=== PATIENT | female | born 1945 | race Caucasian/White ===

== ENCOUNTER 2023-09-15 05:37 | Day surgery (SDC) | payer MEDICARE, SELFPAY ==
[2023-09-15] VITALS (10 sets, daily range): BP systolic 111–173; BP diastolic 66–98; PULSE 75–95; RESP 16–18; TEMP 36.1–36.9; O2SAT 95–100; BMI 26.2
--- NOTE | 2023-09-15 | COLBX_PTH ---
PATHOLOGY RESULTS PATIENT: CHARISSA MCCARTHY LOC: EN U#:[id number] AGE/SX: 78/F ROOM: RE09/15/[address]: Dr. Anish Knutson MD : 1945 BED: DIS: 09/15/2023 SPEC #: [id number] RECD: 09/15/23 11:23 STATUS: ESPERANZA REMike #: [id number] MALENA: 09/15/23 00:[address]: Anish Knutson DEPT: SURGICAL PATHOLOGY RECD BY: Erin Montejo ENTERED: 09/15/23 11:24 SP TYPE: COLON BX OTHR DR: Dr. Audelia Waldron MD Tissues: Transverse colon HEMORRHOIDS Procedures: Surgery Specimen Level III Surgery Specimen Level IV HEADER OPERATION: Multiple polyps, hemorrhoidectomy with colonoscopy with polypectomy PRE-OP DIAGNOSIS: Internal bleeding hemorrhoids TISSUE SUBMITTED: A - Mid transverse polyp, B - Prolapsed hemorrhoid tissue MICROSCOPIC DIAGNOSIS A. Mid transverse polyp, polypectomy: A fragment of colonic mucosa, no pathologic diagnosis. B. Prolapsed hemorrhoid tissue, excision: Pieces of anorectal mucosa with dilated and congested blood vessels consistent with hemorrhoid and with changes consistent with mucosal prolapsed syndrome. PANCHO:shannon 09/16/2023 MICROSCOPIC DESCRIPTION Slides are reviewed. GROSS DESCRIPTION A - Received in fixative is one container labeled with the patient's name and designated mid transverse polyp. The specimen consists of one irregular fragment of light carlisle soft tissue that measures 0.5 x 0.2 x 0.1 cm. The specimen is totally submitted in one cassette. B - Received in fixative is one container labeled with the patient's name and designated prolapsed hemorrhoid tissue. The specimen consists of a piece of carlisle mucosal tissue measuring 7.5 x 1.5 x 1.0 cm. A raised polyp is noted measuring 1.5 x 1.0 x 0.6 cm. Also present is a second piece of carlisle mucosal tissue measuring 2.5 x 1.0 x 0.5 cm. This piece is also inked and bisected. The entire specimen is submitted in seven cassettes as follows: 1-6 - larger piece (cassettes 1 & 2 contain the area with the polyp), 7 - smaller piece. / PANCHO:shannon 09/15/2023 TC:5 CPT: 83298, 84059
--- OUTSIDE RECORDS SUMMARY | 2023-09-15 05:42 | XMS RPT_ITS | CCD ---
Author Name Unknown Address [address] [place] [address] Organization [facility] Care Team Providers Care Freight Sorter Name Role Phone Renate Waldron MD Primary Care Provider Gentry Mendiola Unavailable TRISHA PEDERSON Attending Unavail able TALAMPAS, RENATE D Referring Unavailable TALAMPAS, RENATE D Primary Care Unavailable PHIL DICKERSON Attending UnavailTRISHA Penny Referring Unavail able TALAMPAS, RENATE D Primary Care Unavailable PHIL DICKERSON Attending Unavailabl e TALAMPAS, RENATE D Primary Care Unavailable PHIL DICKERSON Attending Unavailabl e TALAMPAS, RENATE D Primary Care Unavailable Renate Waldron MD Primary Care Provider Gentry Mendiola Unavailable HUMERAAMPAS, RENATE D Referring Unavailable TALAMPAS, RENATE D Primary Care Unavailable KAROLINA BRYANT Attending Unavailable TALAMPAS, RENATE D Primary Care Unavailable TALAMPAS, RENATE D Referring Unavailable TALAMPAS, RENATE D Primary Care Unavailable TALAMPAS, RENATE D Referring Unavailable TALAMPAS, RENATE D Primary Care Unavailable TALAMPAS, RENATE D Attending Unavailable TALAMPAS, RENATE D Primary Care Unavailable KAROLINA BRYANT Referring Unavailable TALAMPAS, RENATE D Primary Care Unavailable TALAMPAS, RENATE D Referring Unavailable TALAMPAS, RENATE D Primary Care Unavailable TALAMPAS, RENATE D Attending Unavailable PRISCILLA ROBB Referring Unavailable TALAMPAS, RENATE D Primary Care Unavailable TALAMPAS, RENATE D Referring Unavailable TALAMPAS, RENATE D Primary Care Unavailable RON CARNEY Referring Unavailable TALAMPAS, RENATE D Primary Care Unavailable TALAMPAS, RENATE D Primary Care Unavailable NANDO WALDRONA Gideon Primary Care Unavailable KAROLINA BRYANT Referring Unavailable NANDO WALDRONA Gideon Primary Care Unavailable KAROLINA BRYANT Referring Unavailable TRELL MARIE Attending Unavailable NANDO WALDRONA Gideon Primary Care Unavailable Allergies Allergy Classification Reported Allergen(s) Allergy Type Date of Onset Reaction(s) Facility (20 sources) Adhesive Tape; Translations: [ADHESIVE TAPE (ROSINS)] Allergy to substance 8 Other: See Comments [facility] (20 sources) Latex; Translations: [LATEX] Drug Allergy 8 Itching [facility] (20 sources) Bee Sting; Translations: [BEE STING] Allergy to substance 8 Swelling [facility] (5 sources) Influenza Virus Vaccines; Translations: [INFLUENZA VIRUS VACCINES] Drug Allergy 8 GI Upset [facility] (20 sources) Influenza Virus Vaccines Drug Allergy 8 GI Upset [facility] Medications Current Medications Medication Drug Class(es) Dates Sig (Normalized) Sig (Original) doxycycline monohydrate 100 mg oral tablet (2 sources) Tetracycline-clas s Drug Start: 09-14-2022 End: 09-19-2022 take 1 tablet by mouth twice daily doxycycline monohydrate 100 mg tablet Indications: Fever, unspecified fever cause , LRTI (lower respiratory tract infection) Take 1 tablet by mouth twice daily for 5 days. 10 tablet 0 09/14/2022 09/19/2022 Active Completed/Discontinued Medications Medication Drug Class(es) Dates Sig (Normalized) Sig (Original) albuterol 0.83 mg/ml inhalation solution (20 sources) beta2-Adrenergic Agonist Start: 09-14-2022 End: 09-14-2022 albuterol 2.5 mg /3 mL (0.083 %) 2.5 mg (PROVENTIL) Problems Active Problems Problem Classification Problem Date Documented Da te Episodic/Chronic Asthma (20 sources) Mild intermittent asthma; Translations: [Mild intermittent asthma, uncomplicated] Chronic Cancer of breast (20 sources) Malignant neoplasm of upper-inner quadrant of female breast; Translations: [Malignant neoplasm of upper-inner quadrant of unspecified female breast] 06-18-2005 Chronic Conditions associated with dizziness or vertigo (20 sources) Meniere's disease; Translations: [Meniere's disease, unspecified ear] Chronic Deficiency and other anemia (3 sources) Iron deficiency anemia; Translations: [Iron deficiency anemia, unspecified] Episodic Deficiency and other anemia (1 source) Other iron deficiency anemias; Translations: [Other iron deficiency anemia] Onset: 3 Episodic Esophageal disorders (20 sources) Gastroesophageal reflux disease; Translations: [Gastro-esophageal reflux disease without esophagitis] Onset: 8 06-18-2005 Chronic Fever of unknown origin (1 source) Fever; Translations: [Fever, unspecified] Episodic Heart valve disorders (8 sources) Aortic stenosis, non-rheumatic ; Translations: [Nonrheumatic aortic (valve) stenosis] Onset: 3 06-20-2023 Chronic Heart valve disorders (1 source) Cardiac murmur, unspecified; Translations: [Heart murmur] Onset: 3 Episodic Hemorrhoids (9 sources) Prolapsed hemorrhoids; Translations: [Other hemorrhoids] Onset: 2 Episodic Immunizations and screening for infectious disease (10 sources) Patient encounter status; Translations: [Encounter for immunization] Episodic Malaise and fatigue (2 sources) Fatigue; Translations: [Chronic fatigue, unspecified] Onset: 3 Chronic Malaise and fatigue (1 source) Weakness; Translations: [Weakness] Onset: 3 Episodic Miscellaneous mental health disorders (20 sources) Lack or loss of sexual desire; 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] Onset: 2 07-25-2012 Chronic Nutritional deficiencies (20 sources) Vitamin D deficiency; Translations: [Vitamin D deficiency, unspecified] Onset: 1 03-30-2011 Chronic Osteoporosis (20 sources) Osteoporosis; Translations: [Age-related osteoporosis without current pathological fracture] Onset: 5 06-18-2005 Chronic Other aftercare (1 source) Other [place] [facility] (current[facility] drug therapy; Translations: [Encounter for long-term current use of medication] Onset: 3 Episodic Other congenital anomalies (20 sources) Congenital anomaly of skin; Translations: [Other specified congenital malformations of skin] Onset: 6 09-02-2006 Chronic Other connective tissue disease (1 source) Cramp in lower limb; Translations: [Cramp and spasm] 05-23-2023 Episodic Other connective tissue disease (1 source) Cramp and spasm; Translations: [Leg cramp] Onset: 3 Episodic Other gastrointestinal disorders (2 sources) Heartburn; Translations: [Heartburn] Episodic Other infections; including parasitic (1 source) Personal history of other infectious and parasitic diseases; Translations: [History of hepatitis B] Onset: 3 Episodic Other inflammatory condition of skin (1 source) Pruritus ani; Translations: [Pruritus ani] Episodic Other lower respiratory disease (1 source) Lower respiratory tract infection; Translations: [Unspecified acute lower respiratory infection] Episodic Other nervous system disorders (20 sources) Plantar nerve lesion; Translations: [Lesion of plantar nerve, unspecified lower limb] Onset: 8 12-28-2007 Chronic Other screening for suspected conditions (not mental disorders or infectious disease) (5 sources) Inconclusive mammography finding; Translations: [Inconclusive mammogram] Onset: 3 05-23-2023 Episodic Other upper respiratory disease (20 sources) Allergic rhinitis; Translations: [Allergic rhinitis, unspecified] 06-18-2005 Chronic Other upper respiratory disease (1 source) Nasal discharge; Translations: [Other specified disorders of nose and nasal sinuses] Episodic Other upper respiratory infections (1 source) Acute frontal sinusitis; Translations: [Acute frontal sinusitis, unspecified] Episodic Prolapse of female genital organs (20 sources) Cystocele; Translations: [Cystocele, unspecified] Onset: 4 11-28-2013 Chronic Residual codes; unclassified (2 sources) Past history of procedure; Translations: [Personal history of other medical treatment] 08-10-2023 Episodic Residual codes; unclassified (1 source) Non-smoker; Translations: [Other specified health status] 08-10-2023 Episodic Residual codes; unclassified (2 sources) Personal history of other medical treatment; Translations: [History of cardiovascular stress test] Onset: 3 Episodic Residual codes; unclassified (1 source) Other specified health status; Translations: [Non-smoker] Onset: 3 Episodic Spondylosis; intervertebral disc disorders; other back problems (20 sources) Degeneration of intervertebral disc; Translations: [Degeneration of intervertebral disc, site unspecified] 06-18-2005 Chronic Unclassified (1 source) Dense breasts; Translations: [Dense breasts] Onset: Viral infection (2 sources) Disease caused by 2019-nCoV; Translations: [COVID-19] Episodic Past or Other Problems Problem Classification Problem Date Documented Da te Episodic/Chronic Abdominal hernia (1 source) Diaphragmatic hernia without obstruction or gangrene; Translations: [Hiatal hernia] Onset: 04-28-2022 Episodic Acquired foot deformities (20 sources) Bunion; Translations: [Bunion of unspecified foot] Onset: 12-14-2007 12-14-2007 Episodic Biliary tract disease (20 sources) Calculus of gallbladder with cholecystitis; Translations: [Calculus of gallbladder with chronic cholecystitis without obstruction] Onset: 10-23-2008 10-23-2008 Episodic Deficiency and other anemia (1 source) Iron deficiency anemia, unspecified; Translations: [Iron deficiency anemia, unspecified iron deficiency anemia type] Onset: 10-15-2022 Episodic Other connective tissue disease (20 sources) Pain in limb; Translations: [Pain in unspecified limb] Onset: 12-28-2007 12-28-2007 Episodic Other female genital disorders (20 sources) Leukoplakia of vulva; Translations: [Circumscribed scleroderma] Onset: 08-31-2011 08-31-2011 Episodic Other gastrointestinal disorders (1 source) Full incontinence of feces; Translations: [Full incontinence of feces] Onset: 04-28-2022 Episodic Other inflammatory condition of skin (1 source) Pruritus ani; Translations: [Perianal irritation] Onset: 06-18-2022 Episodic Spondylosis; intervertebral disc disorders; other back problems (20 sources) Chronic low back pain; Translations: [Lumbago with sciatica, unspecified side] Onset: 06-15-2016 06-15-2016 Episodic Results Test Name Value Interpretation Reference Range Facil ity Vital Signs Date Time Vital Sign Value Performing Clinician Teresa daniels 08-10-2023 15:22-0500 Body height 156.2 cm [employer] Work Phone: [facility] 08-10-2023 15:22-0500 Body weight 63.5 kg Trell [employer] Work Phone: [facility] 08-10-2023 15:22-0500 Diastolic blood pressure 90 mm[Hg] Trell Gross DO Work Phone: [facility] 08-10-2023 15:22-0500 Heart rate 87 /min Trell Gross DO Work Phone: [facility] 08-10-2023 15:22-0500 Systolic blood pressure 142 mm[Hg] Trell Gross DO Work Phone: [facility] 08-03-2023 11:01-0500 Body temperature 99 [degF] Cliff Macariolemiguelangel MEMBER OF TECHNICAL STAFF.ENROLLED NURSE Work Phone: [facility] 08-03-2023 11:01-0500 Body weight 64.95 kg Cliff Vaughn MEMBER OF TECHNICAL STAFF.ENROLLED NURSE Work Phone: [facility] 08-03-2023 11:01-0500 Diastolic blood pressure 76 mm[Hg] Cliff Vaughn MEMBER OF TECHNICAL STAFF.ENROLLED NURSE Work Phone: [facility] 08-03-2023 11:01-0500 Heart rate 93 /min Cliff Vaughn MEMBER OF TECHNICAL STAFF.ENROLLED NURSE Work Phone: [facility] 08-03-2023 11:01-0500 Respiratory rate 21 /min Cliff Vaughn MEMBER OF TECHNICAL STAFF.ENROLLED NURSE Work Phone: [facility] 08-03-2023 11:01-0500 SaO2% (BldA) [Mass fraction] 99 % Cliff Vaughn MEMBER OF TECHNICAL STAFF.ENROLLED NURSE Work Phone: [facility] 08-03-2023 11:01-0500 Systolic blood pressure 122 mm[Hg] Cliff Vaughn MEMBER OF TECHNICAL STAFF.ENROLLED NURSE Work Phone: [facility] 05-23-2023 17:28-0400 Diastolic blood pressure 72 mm[Hg] Renate Waldron MD Work Phone: [facility] 05-23-2023 17:28-0400 Systolic blood pressure 128 mm[Hg] Renate Waldron MD Work Phone: [facility] 05-23-2023 16:27-0400 Body temperature 99 [degF] Renate Waldron MD Work Phone: [facility] 05-23-2023 16:27-0400 Body weight 63.96 kg Renate Waldron MD Work Phone: [facility] 05-23-2023 16:27-0400 Heart rate 84 /min Renate Waldron MD Work Phone: [facility] 05-23-2023 16:27-0400 Respiratory rate 18 /min Renate Waldron MD Work Phone: [facility] 05-23-2023 16:27-0400 SaO2% (BldA) [Mass fraction] 98 % Reante Waldron MD Work Phone: [facility] 12-20-2022 07:55-0400 Body height 154.9 cm Phil Dickerson MD Work Phone: [facility] 12-20-2022 07:55-0400 Body weight 63.96 kg Phil Dickerson MD Work Phone: [facility] 12-20-2022 07:55-0400 Diastolic blood pressure 84 mm[Hg] Phil Dickerson MD Work Phone: [facility] 12-20-2022 07:55-0400 Heart rate 87 /min Phil Dickerson MD Work Phone: [facility] 12-20-2022 07:55-0400 Systolic blood pressure 156 mm[Hg] Phil Dickerson MD Work Phone: [facility] 10-27-2022 15:28-0500 Body temperature 97.5 [degF] Renate Waldron MD Work Phone: [facility] 10-27-2022 15:28-0500 Body weight 61.69 kg Renate Waldron MD Work Phone: [facility] 10-27-2022 15:28-0500 Diastolic blood pressure 64 mm[Hg] Renate Waldron MD Work Phone: [facility] 10-27-2022 15:28-0500 Heart rate 102 /min Renate Waldron MD Work Phone: [facility] 10-27-2022 15:28-0500 Respiratory rate 18 /min Renate Waldron MD Work Phone: [facility] 10-27-2022 15:28-0500 SaO2% (BldA) [Mass fraction] 98 % Renate Waldron MD Work Phone: [facility] 10-27-2022 15:28-0500 Systolic blood pressure 128 mm[Hg] Renate Waldron MD Work Phone: [facility] 09-14-2022 17:29-0500 Body temperature 100.09 [degF] Ron Denbow PA-C Work Phone: [facility] 09-14-2022 17:29-0500 Body weight 60.42 kg Ron Denbow PA-C Work Phone: [facility] 09-14-2022 17:29-0500 Diastolic blood pressure 70 mm[Hg] Ron Denbow PA-C Work Phone: [facility] 09-14-2022 17:29-0500 Heart rate 88 /min Ron Denbow PA-C Work Phone: [facility] 09-14-2022 17:29-0500 Respiratory rate 18 /min Ron Denbow PA-C Work Phone: [facility] 09-14-2022 17:29-0500 SaO2% (BldA) [Mass fraction] 94 % Ron Denbow PA-C Work Phone: [facility] 09-14-2022 17:29-0500 Systolic blood pressure 122 mm[Hg] Ron Denbow PA-C Work Phone: [facility] 07-07-2022 10:46-0400 Body height 154.9 cm Phil Dickerson MD Work Phone: [facility] 07-07-2022 10:46-0400 Body weight 62.6 kg Phil Dickerson MD Work Phone: [facility] 07-07-2022 10:46-0400 Diastolic blood pressure 76 mm[Hg] Phil Dickerson MD Work Phone: [facility] 07-07-2022 10:46-0400 Heart rate 92 /min Phil Dickerson MD Work Phone: [facility] 07-07-2022 10:46-0400 Systolic blood pressure 148 mm[Hg] Phil Dickerson MD Work Phone: [facility] 06-18-2022 10:38-0400 Body height 154.9 cm Phil Dickerson MD Work Phone: [facility] 06-18-2022 10:38-0400 Body weight 62.14 kg Phil Dickerson MD Work Phone: [facility] 06-18-2022 10:38-0400 Diastolic blood pressure 64 mm[Hg] Phil Dickerson MD Work Phone: [facility] 06-18-2022 10:38-0400 Heart rate 79 /min Phil Dickerson MD Work Phone: [facility] 06-18-2022 10:38-0400 Systolic blood pressure 132 mm[Hg] Phil Dickerson MD Work Phone: [facility] 03-18-2022 11:40-0400 Body weight 60.78 kg Priscilla Robb MEMBER OF TECHNICAL STAFF.CN S Work Phone: [facility] 03-18-2022 11:40-0400 Diastolic blood pressure 70 mm[Hg] Priscilla Robb MEMBER OF TECHNICAL STAFF.FILLER SHREDDER MACHINE Work Phone: [facility] 03-18-2022 11:40-0400 Heart rate 68 /min Priscilla Robb MEMBER OF TECHNICAL STAFF.CN S Work Phone: [facility] 03-18-2022 11:40-0400 Respiratory rate 16 /min Priscilla Robb MEMBER OF TECHNICAL STAFF.CN S Work Phone: [facility] 03-18-2022 11:40-0400 SaO2% (BldA) [Mass fraction] 100 % Priscilla Robb MEMBER OF TECHNICAL STAFF.FILLER SHREDDER MACHINE Work Phone: [facility] 03-18-2022 11:40-0400 Systolic blood pressure 130 mm[Hg] Priscilla Robb MEMBER OF TECHNICAL STAFF.FILLER SHREDDER MACHINE Work Phone: [facility] Encounters Encounter Date Encounter Type Care Provider Facility Start: 08-10-2023 End: 08-10-2023 ambulatory KAROLINA BRYANT Facility:[id number] Start: 08-10-2023 End: 08-10-2023 Patient encounter procedure Trell Marie DO Work Phone: [facility] Procedures Date Procedure Procedure Detail Performing Clinician Start: 08-10-2023 Ecg routine ecg w/le ast 12 lds i&r only Trell Plascencia Frank DO Work Phone: Start: 06-13-2023 Screening digital br [place] tomos[employer] bi Renate aWldron MD Work Phone: Start: 09-14-2022 Radiologic exam ches t 2 views Ron Carney PA-C Work Phone: Start: 09-14-2022 COVID WITH FLUA+B, ROUTINE Ron Carney PA-C Work Phone: Start: 05-24-2022 BOBBI SCREENING W MADI Te nanci Robb MEMBER OF TECHNICAL STAFF.FILLER SHREDDER MACHINE Work Phone: Start: 03-18-2022 Adult depression scr eening assessment Priscilla Robb MEMBER OF TECHNICAL STAFF.FILLER SHREDDER MACHINE Work Phone: Start: 02-27-2021 Adult depression scr eening assessment Renate Waldron MD Work Phone: Start: 08-02-2018 Antibody screen Plan of Treatment Date Care Activity Detail Author Start: 06-14-2026 Diabetes Screening Diabetes Screenin [facility] Start: 04-13-2026 DIABETES SCREEN DIABETES SCREEN [facility] Start: 04-13-2026 Diabetes Screening Diabetes Screenin [facility] Start: 10-15-2025 DIABETES SCREEN DIABETES SCREEN [facility] Start: 09-21-2024 DIABETES SCREEN DIABETES SCREEN [facility] Start: 06-14-2024 Annual PCP Team Magazine Keeper anthony Disease Visit Annual PCP Team Chronic Disease Visit [facility] Start: 05-23-2024 Annual PCP Team Magazine Keeper anthony Disease Visit Annual PCP Team Chronic Disease Visit [facility] Start: 11-21-2023 Pneumococcal Vaccine : 65+ (2 - PPSV23 or PCV20) Pneumococcal Vaccine: 65+ (2 - PPSV23 or PCV20) [facility] Immunizations Immunization Date Immunization Notes Care Provider Yaw leslie 11-09-2017 pneumococcal conjuga te vaccine, 13 valent Renate Waldron MD Work Phone: [facility] 07-25-2006 influenza virus vaccine, unspecified formulation Renate Waldron MD Work Phone: [facility] Work Phone: NEGATED: Highlighted row has not occurred!03-18-2022 pneumococcal (PCV20) vaccine, 20 valent (PREVNAR 20) Priscilla Robb APRN.[employer] [facility] Work Phone: [facility] Work Phone: Payers Date Payer Category Payer Medicare [employer]NA MEDICARE HU[employer] MEDICARE PPO [id number] 2021-Present [phone] [place] [address] PPO [id number] 2018 Medicare [id number] 2018 Medicare [id number] Social History Date Type Detail Facility Start: 07-21-2011 Tobacco smoking stat us [facility] Never smoked tobacco [facility] Start: 09-15-2021 End: 08-10-2023 Alcohol intake Current non-drinker of alcohol (finding) [facility] Start: 1945 Sex Assigned At Not on file [facility] Start: 03-08-2022 End: 07-07-2022 Exposure to SARS-CoV-2 (event) Not sure [facility] Work Phone: Start: 07-21-2011 Tobacco use and exposure Smokeless tobacco non-user [facility] Work Phone: Start: 12-20-2022 End: 05-23-2023 History of Social function [facility] Work Phone: Start: 12-20-2022 End: 05-23-2023 Tobacco use panel [facility] Work Phone: Adult Depression Screening Assessment 0 [facility] Work Phone: Medical Equipment Procedure Code Equipment Code Equipment Origin al Text Equipment Identifier Dates Mesh Bio-A Synth etic 10x7cm Surgical Reinforcement Hernia Repair - [id number] Start: 08-10-2018 Clinical Notes 07-05-2018 to 08-10-2023 Trell Marie DO - 08/10/2023 3:07 PM ESTTelephone Encounter - Paris Hillman LPN - 08/03/2023 7:49 PM ESTTelephone Encounter - Syed Antonio APRN.ENROLLED NURSE - 08/03/2023 7:45 PM EST Note Date & Type Note Facility 08-10-2023 Note HNO ID: [id number] Author: Trell Marie DO Service: ? Author Type: Physician Type: Progress Notes Filed: 08/14/2023 5:02 AM Note Text: Referring Provider: Karolina Bryant APRN.ENROLLED NURSE Date: August 10, 2023 Chief Complaint: CARD New Patient Consult (Aortic valve stenosis. ) HISTORY OF PRESENT ILLNESS: Carmela March is a 78 year old female who presents for CARD New Patient Consult (Aortic valve stenosis. ). ALLERGIES Allergen Reactions Adhesive Tape (Shanon* Other: See Comments Bee Sting Swelling Influenza Virus Vac* GI Upset Latex Itching PAST MEDICAL HISTORY: PAST MEDICAL HISTORY Diagnosis Date Allergic rhinitis, cause unspecified Allergic rhinitis Chronic hepatitis, unspecified (HCC) Noted that negative for chronic active Hep B or C. Fatty liver noted on US Degeneration of intervertebral disc, site unspecified Esophageal reflux GERD (gastroesophageal reflux disease) Hiatal hernia History of cardiovascular stress test 07/07/2017 EF 81% no evidence of iscemia or infarct. History of echocardiogram 06/16/2023 EF is 61% Grade I left ventricular diastolic dysfunction. Moderate with ALEJA at 1.13 cm?. Mild aortic valve insufficiency and AR. Mild TR and MR. 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 Pederson DILATION AND CURETTAGE DXAND/THER NONOBSTETRIC Dilation AND curettage EGD TRANSORAL BIOPSY SINGLE/MULTIPLE 04/08/2017 H. pylori + ESOPHAGEAL MOTILITY STUDY W/INTERPANDRPT 04/08/2017 LAPS RPR PARAESPHGL HRNA INCL FUNDPLSTY W/MESH 08/10/2018 Dr. Pederson LAPS SURG CHOLECYSTECTOMY W/CHOLANGIOGRAPHY 11/07/2008 NEUROPLASTY AND/TRANSPOS MEDIAN NRV CARPAL TUNNE Carpal tunnel decomp, Bilateral PAST SURGICAL HISTORY OF 1998 Lumpectomy Right breast w/node biopsy PAST SURGICAL HISTORY OF all teeth extracted due to abcesses REMV CATARACT EXTRACAP,INSERT LENS Left 2021 FAMILY HISTORY Problem Relation Age of Onset Heart Father , [place] Diabetes Mother Heart Mother Diabetes Maternal Grandmother Heart Maternal Aunt Breast Cancer Other great aunt x 3 Colon Cancer Other aunt SOCIAL HISTORY: Tobacco Use: Never Alcohol Use: No Drug Use: No Employer And Job Title: No employer specified (Retired, disability) Years Of Education Completed: 11 years Marital Status: to [place] with 2 children MEDICATIONS: Current Outpatient Medications Medication Sig clobetasol (TEMOVATE) 0.05 % ointment Apply 1 application to affected area. Apply small amount to area nightly for 6 weeks then once weekly for maintenance ferrous sulfate 325 mg (65 mg iron) tablet Take 1 tablet by mouth every Tuesday,Tuesday,Tuesday. EVERY OTHER DAY esomeprazole (NEXIUM) 20 mg capsule TAKE 1 CAPSULE BY MOUTH DAILY 30 MINUTES BEFORE BREAKFAST meclizine (ANTIVERT) 12.5 mg tab Take 1 tablet by mouth three times daily as needed (dizziness). famotidine (PEPCID) 20 mg tablet Take 1 tablet by mouth twice daily. As directed albuterol HFA (VENTOLIN HFA) 90 mcg/actuation inhaler Inhale 2 Puffs as instructed every 4 hours as needed for wheezing/shortness of breath. MEDICATION, NON-DATABASE Turmeric GINKGO BILOBA ORAL Take by mouth. fluticasone (FLONASE) 50 mcg/actuation nasal spray Use 2 Sprays in each nostril once daily. Rinse mouth after use. BACILLUS COAGULANS (PROBIOTIC, B. COAGULANS, ORAL) Take 1 capsule by mouth once daily. Cholecalciferol, Vitamin D3, 5,000 unit cap Take 1 capsule by mouth once daily. THERAPEUTIC MULTIVITAMIN TAB Take one(1) tablet daily. CALCIUM 600 600 MG TAB Take one(1) tablet two(2) times daily. No current facility-administered medications for this visit. I have personally reviewed the patients past medical history including social, family, surgical, diagnostics, and medications. REVIEW OF SYSTEMS: Review of Systems Constitutional: Negative for chills and fatigue. Respiratory: Negative for chest tightness and shortness of breath. Cardiovascular: Negative for chest pain, palpitations and leg swelling. Neurological: Negative for dizziness, syncope, weakness and light-headedness. Hematological: Does not bruise/bleed easily. Psychiatric/Behavioral: Negative for confusion and hallucinations. Vitals: BP 142/90 (BP Site: Left Arm, BP Position: Sitting) Pulse 87 Ht 156.2 cm (5' 1.5 ) Wt 63.5 kg (140 lb) BMI 26.02 kg/m? PHYSICAL EXAMINATION: BP 142/90 (BP Site: Left Arm, BP Position: Sitting) Pulse 87 Ht 156.2 cm (5' 1.5 ) Wt 63.5 kg (140 lb) BMI 26.02 kg/m? Last 3 Encounter BP Readings: Date: BP: (more content not included)... [facility] 08-10-2023 History of Present illness Narrative Images from the original note were not included. Referring Provider: Karolina Bryant APRN.CNP Date: August 10, 2023 Chief Complaint: CARD New Patient Consult (Aortic valve stenosis. ) HISTORY OF PRESENT ILLNESS: Carmela March is a 78 year old female who presents for CARD New Patient Consult (Aortic valve stenosis. ). ALLERGIES Allergen Reactions Adhesive Tape (Shanon* Other: See Comments Bee Sting Swelling Influenza Virus Vac* GI Upset Latex Itching PAST MEDICAL HISTORY: PAST MEDICAL HISTORY Diagnosis Date Allergic rhinitis, cause unspecified Allergic rhinitis Chronic hepatitis, unspecified (HCC) Noted that negative for chronic active Hep B or C. Fatty liver noted on US Degeneration of intervertebral disc, site unspecified Esophageal reflux GERD (gastroesophageal reflux disease) Hiatal hernia History of cardiovascular stress test 07/07/2017 EF 81% no evidence of iscemia or infarct. History of echocardiogram 06/16/2023 EF is 61% Grade I left ventricular diastolic dysfunction. Moderate with ALEJA at 1.13 cm . Mild aortic valve insufficiency and AR. Mild TR and MR. 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 Pederson DILATION & CURETTAGE DX&/THER NONOBSTETRIC Dilation & curettage EGD TRANSORAL BIOPSY SINGLE/MULTIPLE 04/08/2017 H. pylori + ESOPHAGEAL MOTILITY STUDY W/INTERP&RPT 04/08/2017 LAPS RPR PARAESPHGL HRNA INCL FUNDPLSTY W/MESH 08/10/2018 Dr. Dacia JAIN SURG CHOLECYSTECTOMY W/CHOLANGIOGRAPHY 11/07/2008 NEUROPLASTY &/TRANSPOS MEDIAN NRV CARPAL TUNNE Carpal tunnel decomp, Bilateral PAST SURGICAL HISTORY OF 1998 Lumpectomy Right breast w/node biopsy PAST SURGICAL HISTORY OF all teeth extracted due to abcesses REMV CATARACT EXTRACAP,INSERT LENS Left 2021 FAMILY HISTORY Problem Relation Age of Onset Heart Father , [place] Diabetes Mother Heart Mother Diabetes Maternal Grandmother Heart Maternal Aunt Breast Cancer Other great aunt x 3 Colon Cancer Other aunt SOCIAL HISTORY: Tobacco Use: Never Alcohol Use: No Drug Use: No Employer And Job Title: No employer specified (Retired, disability) Years Of Education Completed: 11 years Marital Status: to Basil with 2 children MEDICATIONS: Current Outpatient Medications Medication Sig clobetasol (TEMOVATE) 0.05 % ointment Apply 1 application to affected area. Apply small amount to area nightly for 6 weeks then once weekly for maintenance ferrous sulfate 325 mg (65 mg iron) tablet Take 1 tablet by mouth every Tuesday,Tuesday,Tuesday. EVERY OTHER DAY esomeprazole (NEXIUM) 20 mg capsule TAKE 1 CAPSULE BY MOUTH DAILY 30 MINUTES BEFORE BREAKFAST meclizine (ANTIVERT) 12.5 mg tab Take 1 tablet by mouth three times daily as needed (dizziness). famotidine (PEPCID) 20 mg tablet Take 1 tablet by mouth twice daily. As directed albuterol HFA (VENTOLIN HFA) 90 mcg/actuation inhaler Inhale 2 Puffs as instructed every 4 hours as needed for wheezing/shortness of breath. MEDICATION, NON-DATABASE Turmeric GINKGO BILOBA ORAL Take by mouth. fluticasone (FLONASE) 50 mcg/actuation nasal spray Use 2 Sprays in each nostril once daily. Rinse mouth after use. BACILLUS COAGULANS (PROBIOTIC, B. COAGULANS, ORAL) Take 1 capsule by mouth once daily. Cholecalciferol, Vitamin D3, 5,000 unit cap Take 1 capsule by mouth once daily. THERAPEUTIC MULTIVITAMIN TAB Take one(1) tablet daily. CALCIUM 600 600 MG TAB Take one(1) tablet two(2) times daily. No current facility-administered medications for this visit. I have personally reviewed the patients past medical history including social, family, surgical, diagnostics, and medications. REVIEW OF SYSTEMS: Review of Systems Constitutional: Negative for chills and fatigue. Respiratory: Negative for chest tightness and shortness of breath. Cardiovascular: Negative for chest pain, palpitations and leg swelling. Neurological: Negative for dizziness, syncope, weakness and light-headedness. Hematological: Does not bruise/bleed easily. Psychiatric/Behavioral: Negative for confusion and hallucinations. Vitals: BP 142/90 (BP Site: Left Arm, BP Position: Sitting) Pulse 87 Ht 156.2 cm (5' 1.5 ) Wt 63.5 kg (140 lb) BMI 26.02 kg/m PHYSICAL EXAMINATION: BP 142/90 (BP Site: Left Arm, BP Position: Sitting) Pulse 87 Ht 156.2 cm (5' 1.5 ) Wt 63.5 kg (140 lb) BMI 26.02 kg/m Last 3 Encounter BP Readings: Date: BP: 08/03/2023 122/76 06/14/2023 130/80 05/23/2023 128/72 Last 3 Encounter Pulse Readings: Date: Pulse: 08/03/2023 93 06/14/2023 78 05/23/2023 84 Last 3 Encounter Wt Readings: Date: Wt: 08/03/2023 65 kg (143 lb 3.2 oz) 06/14/2023 63.5 kg (140 lb) 05/23/2023 64 kg (141 lb) Physical Exam Vitals reviewed. Constitutional: General: She is not in acute distress. Cardiovascular: Rate and Rhythm: Normal rate and regular rhythm. Pulses: Carotid pulses are 2+ on the right side and 2+ on the left side. Radial pulses are 2+ on the right side and 2+ on the left side. Femoral pulses are 2+ on the right side and 2+ on the left side. Popliteal pulses are 2+ on the right side and 2+ on the left side. Dorsalis pedis pulses are 2+ on the right side and 2+ on the left side. Posterior tibial pulses are 2+ on the right side and 2+ on the left side. Heart sounds: Murmur heard. Systolic murmur is present with a grade of 2/6. Comments: PMI not displaced. 2nd heart sound loud. Pulmonary: Effort: Pulmonary effort is normal. Breath sounds: Normal breath sounds. Abdominal: General: Abdomen is flat. Bowel sounds are normal. Palpations: Abdomen is soft. Tenderness: There is no abdominal tenderness. Musculoskeletal: Right lower leg: No edema. Left lower leg: No edema. Skin: General: Skin is warm. Findings: No rash or wound. Neurological: Mental Status: She is alert and oriented to person, place, and time. Coordination: Coordination is intact. LABS: Glucose (mg/dL) Date Value 06/14/2023 91 09/21/2021 88 Potassium (mmol/L) Date Value 06/14/2023 4.3 09/21/2021 4.3 Sodium (mmol/L) Date Value 06/14/2023 141 09/21/2021 141 Chloride (mmol/L) Date Value 06/14/2023 104 09/21/2021 103 CO2 (mmol/L) Date Value 06/14/2023 23 09/21/2021 25 Creatinine (mg/dL) Date Value 06/14/2023 0.84 09/21/2021 0.87 BUN (mg/dL) Date Value 06/14/2023 16 09/21/2021 18 Anion Gap (mmol/L) Date Value 06/14/2023 14 09/21/2021 13 Calcium (mg/dL) Date Value 09/21/2021 9.9 Calcium, Total (mg/dL) Date Value 06/14/2023 9.9 Protein, Total (g/dL) Date Value 06/14/2023 7.7 09/21/2021 7.5 Albumin (g/dL) Date Value 06/14/2023 4.3 09/21/2021 4.4 Bilirubin, Total (mg/dL) Date Value 06/14/2023 0.2 09/21/2021 0.3 Alkaline Phosphatase (U/L) Date Value 06/14/2023 66 09/21/2021 63 AST (U/L) Date Value 06/14/2023 30 09/21/2021 28 ALT (U/L) Date Value 06/14/2023 17 09/21/2021 15 Hemoglobin (g/dL) Date Value 06/14/2023 11.9 09/21/2021 11.3 Hematocrit (%) Date Value 06/14/2023 38.3 09/21/2021 37.0 WBC (k/uL) Date Value 06/14/2023 7.40 09/21/2021 7.41 Cholesterol, Total (mg/dL) Date Value 10/15/2022 179 02/20/2020 181 HDL Cholesterol (mg/dL) Date Value 10/15/2022 63 02/20/2020 55 LDL Cholesterol (mg/dL) Date Value 10/15/2022 104 02/20/2020 109 Triglyceride (mg/dL) Date Value 10/15/2022 61 02/20/2020 87 EKG: ASSESSMENT/PLAN: 1. Aortic valve stenosis, etiology of cardiac valve disease unspecified - ICD9: 424.1, ICD10: I35.0 (primary diagnosis) on physical examination aortic valve sounds like 1.2. Second heart sound is decreased there is a heave Hematology she did not have shortness of breath did not have syncope near syncope. We discussed in pictorial format aortic stenosis. I do not think it is time for a surgical approach. Will go ahead and follow-up the patient in 6 to 9 months. Look for signs and symptoms shortness of breath and syncope 2. History of cardiovascular stress test - ICD9: V15.89, ICD10: Z92.89 Stress test done on 07/07/2017 showed EF 81% no evidence of iscemia or infarct. 3. History of echocardiogram - ICD9: V15.89, ICD10: Z92.89 Echo done on 06/16/2023 showed EF is 61% Grade I left ventricular diastolic dysfunction. Moderate with ALEJA at 1.13 cm . Mild aortic valve insufficiency and AR. Mild TR and MR. 4. Non-smoker - ICD9: V49.89, ICD10: Z78.9 Patient is a non-smoker , ICD10: I35.2 5. Preoperative patient here today for preoperative evaluation. There is no history of prior myocardial infarction last 6 months no evidence of recent onset of congestive heart failure.cEvaluation that determines a poor outlook is severe aortic stenosis and rales. We will clear the patient for surgery after examination reviewed today's diagnostic testing Surgical clearance for hemorrhoid I, Bettie Munoz MA , scribing for Dr. Trell Marie, was present in the room during the examination Follow up in:1 year with Thelma Prior to entering the room, I reviewed the last progress note including the diagnosis and plan of action. When available, I then reviewed the last heart catheterization, stress test, echocardiogram and EKG. I proceeded to review the medial therapy and any side effects the patient may have had in the past. I was able to look at the last several EKGs. A new EKG was performed today and an interetation was performed. I reviewed its interpretation with the family and compared it to the previous EKGs that we have in the medical records. Changes were described to the patient. In a pictorial format; I described the AL and QRS intervals. This was to show the effects of antiarrhythmic therapy on the electrical system. I was able to look at the past several EKG's. A new EKG was performed today and interpretation was noted. I reviewed this interpretation with the patient, and the family when available, and compared it to the previous EKG's that we have in the medical record. Since my office visit was carried out with a scribe, while in the exam room I was able to devote one hundred percent of my time in [id number] conversation with the patient. I answered all the questions and explained the diagnosis of mild aortic stenosis. Greater that 51% of my time was spent with [id number] conversation with the patient. I have discussed the recommended treatment, alternative therapies and other options in detail. I've discussed the best benefit and side effects of these recommended treatments. I've attempted to answer all the questions to the patient's satisfaction and understanding. With approval, we would recommend an pursue the current therapy such as clear for surgery and repeat echocardiogram in 6 to 9 months. After leaving the exam room, I went back into the patient's chart and coordinated care with my nurse ordering the proper testing and medicinal changes. Letter was performed with voice recognition algorithms and sent to the referring team. The chart was completed. Including the pre-exam, exam and post-exam, the total time spent in the patient's management was greater than 15 minutes I, Dr. Trell Marie, have reviewed and agree with the information in the medical record. Trell Marie DO documented in this encounter [facility] 08-03-2023 Miscellaneous Notes Patient notified.Paris Hillman LPN Please notify that covid/flu/rsv testing negative. Continue with plan of care as discussed during visit. documented in this encounter [facility] 08-03-2023 Note HNO ID: [id number] Author: Cliff Vaughn APRN.DANAE Service: ? Author Type: Nurse Practitioner Type: Progress Notes Filed: 08/03/2023 11:59 AM Note Text: Subjective HPI Nontoxic-appearing female presents to urgent care with chief complaint of upper respiratory tract like infection. Duration of symptoms 4 days. Associated symptoms sore throat, nasal congestion, nasal discharge and nonproductive cough. Patient denies the use of any yzcn-yay-oqdwiom medications or home remedies for symptom management. Patient states recent sick contacts with similar signs and symptoms. Patient denies any productive cough, fever, chest pain, shortness of breath, pleuritic pain, rash, abdominal pain, nausea, vomiting or change in bowel or bladder habit. Past medical history prescription medications allergies reviewed. .Patient presents with: Cough: Congestion, sore throat, SHAW, sinus pressure, ears poppingx 4 days PAST MEDICAL HISTORY Diagnosis Date Allergic rhinitis, cause unspecified Allergic rhinitis Chronic hepatitis, unspecified (HCC) Noted that negative for chronic active Hep B or C. Fatty liver noted on US Degeneration of intervertebral disc, site unspecified Esophageal reflux GERD (gastroesophageal reflux disease) Hiatal hernia Malignant neoplasm of upper-inner quadrant of female breast (HCC) right breast, Chemo 1998 Meniere's disease, unspecified Meniere's disease Obesity, unspecified Osteoporosis, unspecified Polyp, colonic 03/2017 tubular adenoma Unspecified asthma(493.90) PAST SURGICAL HISTORY Procedure Laterality Date BIOPSY LIVER NEEDLE PERCUTANEOUS 11/07/2008 COLONOSCOPY W/BIOPSY SINGLE/MULTIPLE 04/08/2017 tubular adenoma in cecum; Dr. Pederson DILATION AND CURETTAGE DXAND/THER NONOBSTETRIC Dilation AND curettage EGD TRANSORAL BIOPSY SINGLE/MULTIPLE 04/08/2017 H. pylori + ESOPHAGEAL MOTILITY STUDY W/INTERPANDRPT 04/08/2017 LAPS RPR PARAESPHGL HRNA INCL FUNDPLSTY W/MESH 08/10/2018 Dr. Pederson LAPS SURG CHOLECYSTECTOMY W/CHOLANGIOGRAPHY 11/07/2008 NEUROPLASTY AND/TRANSPOS MEDIAN NRV CARPAL TUNNE Carpal tunnel decomp, Bilateral PAST SURGICAL HISTORY OF 1998 Lumpectomy Right breast w/node biopsy PAST SURGICAL HISTORY OF all teeth extracted due to abcesses REMV CATARACT EXTRACAP,INSERT LENS Left 2021 ALLERGIES Adhesive Tape (Rosins), Bee Sting, Influenza Virus Vaccines, and Latex MEDICATIONS clobetasol (TEMOVATE) 0.05 % ointment Apply 1 application to affected area. Apply small amount to area nightly for 6 weeks then once weekly for maintenance ferrous sulfate 325 mg (65 mg iron) tablet Take 1 tablet by mouth every Tuesday,Tuesday,Tuesday. EVERY OTHER DAY esomeprazole (NEXIUM) 20 mg capsule TAKE 1 CAPSULE BY MOUTH DAILY 30 MINUTES BEFORE BREAKFAST meclizine (ANTIVERT) 12.5 mg tab Take 1 tablet by mouth three times daily as needed (dizziness). famotidine (PEPCID) 20 mg tablet Take 1 tablet by mouth twice daily. As directed albuterol HFA (VENTOLIN HFA) 90 mcg/actuation inhaler Inhale 2 Puffs as instructed every 4 hours as needed for wheezing/shortness of breath. MEDICATION, NON-DATABASE Turmeric GINKGO BILOBA ORAL Take by mouth. fluticasone (FLONASE) 50 mcg/actuation nasal spray Use 2 Sprays in each nostril once daily. Rinse mouth after use. BACILLUS COAGULANS (PROBIOTIC, B. COAGULANS, ORAL) Take 1 capsule by mouth once daily. Cholecalciferol, Vitamin D3, 5,000 unit cap Take 1 capsule by mouth once daily. THERAPEUTIC MULTIVITAMIN TAB Take one(1) tablet daily. CALCIUM 600 600 MG TAB Take one(1) tablet two(2) times daily. FAMILY HISTORY Problem Relation Age of Onset Heart Father , [place] Diabetes Mother Heart Mother Diabetes Maternal Grandmother Heart Maternal Aunt Breast Cancer Other great aunt x 3 Colon Cancer Other aunt Social History Tobacco Use Smoking status: Never Smokeless tobacco: Never Substance Use Topics Alcohol use: No Drug use: No BP 122/76 Pulse 93 Temp 37.2 ?C (99 ?F) Resp 21 Wt 65 kg (143 lb 3.2 oz) SpO2 99% BMI 27.06 kg/m? Review of Systems Constitutional: Negative for chills, fever and malaise/fatigue. HENT: Positive for congestion and sore throat. Negative for ear discharge, ear pain and sinus pain. Eyes: Negative for blurred vision, pain, discharge and redness. Respiratory: Positive for cough. Negative for hemoptysis, sputum production, shortness of breath, wheezing and stridor. Cardiovascular: Negative for chest pain. Gastrointestinal: Negative for abdominal pain, diarrhea, nausea and vomiting. Musculoskeletal: Positive for myalgias. Skin: Negative for itching and rash. Neurological: Positive for headaches. Negative for dizziness. Objective Physical Exam Constitutional: General: She is not in acute distress. Appearance: She is not diaphoretic. HENT: Head: Normocephalic. Jaw: No trismus, tenderness, swelling or pain on movement. (more content not included)... [facility] 08-03-2023 Instructions Cliff Vaughn APRN.ENROLLED NURSE - 08/03/2023 11:22 AM EST How to Manage Common Symptoms Associated with COVID for Adults Fever- Fever is a temperature over 100.4 F and can occur when the body is fighting an infection. To help treat a fever: Drink plenty of fluids and stay well hydrated. Eat small amounts of easy to digest food. Rest. Your body needs rest to recover, but getting up and moving around the house frequently is a good idea. You should try to continue doing your normal daily activities (bathing, toileting, grooming, cooking), though you will probably feel tired, and need to rest often. Avoid any heavy activity or exercise, as this will increase your body temperature. Dress in light clothing and stay covered in a light sheet. Keep the room temperature cool. Take a slightly warm (not cold or cool) bath, or apply damp washcloths to the forehead and wrists. Cough- Cough is a common symptom associated with COVID and can be bothersome. To help treat a cough: Stay well hydrated. Try warm water or tea with lemon and/or honey to help soothe the cough. Use a humidifier to add moisture to the air. Try a product with menthol, like a cough drop or a rub for your chest such as Vicks, which can help reduce cough. Try cough drops. Avoid smoking and other strong odors or perfumes. Try breathing exercises to keep your lungs open and clear. Take a big deep breath through your nose and hold for 5 seconds before slowly releasing. Repeat frequently, while you are awake. Congestion- Runny nose or nasal congestion can occur with COVID. Treatment can help relieve symptoms: Try OTC nasal saline spray, or nasal saline rinse to relieve mucus congestion. Nasal strips can help keep nasal passages open, to increase airflow. Elevating your head with an extra pillow in bed can help reduce congestion. Using a humidifier can increase moisture in the air, and make breathing easier. Sore Throat- Another common symptom with COVID, can be managed at home by: Stay well hydrated. Gargle with salt water - mix teaspoon salt with 1 cup of warm water and gargle. This helps to loosen mucus in the back of the throat and may reduce discomfort. Try ice chips, popsicles or lozenges to soothe the throat. Nausea/Vomiting/Diarrhea- These are common symptoms, and staying hydrated is most important. If you are nauseous or vomiting, start with small sips of water every 10-15 minutes and increase as tolerated. You can try sucking an ice cube too. If tolerating, you can try pedialyte or Gatorade, or flat sprite or deangelo-alra. Start slowly and increase as you are able to. Instead of meals, try smaller, more frequent snacks. Try eating bland foods like crackers, toast, rice, and applesauce. Avoid spicy, greasy or fried foods and dairy containing foods. Even if you aren't feeling hungry due to lack of smell or taste, it is important to try to take in some food when you are able. After drinking and eating, rest in an upright position for up to two hours as needed to help decrease nauseous feelings. Try closing your eyes, avoid moving and watching TV. Avoid strong odors that can make you feel more nauseated. When to seek emergency medical attention Look for emergency warning signs for COVID-19. If having any of these symptoms, seek emergency medical care immediately: Trouble breathing Persistent pain or pressure in the chest New confusion Inability to wake or stay awake Bluish lips or face *This list is not all possible symptoms. Please call your medical provider for any other symptoms that are severe or concerning to you. documented in this encounter [facility] 08-03-2023 History of Present illness Narrative Subjective HPI Nontoxic-appearing female presents to urgent care with chief complaint of upper respiratory tract like infection. Duration of symptoms 4 days. Associated symptoms sore throat, nasal congestion, nasal discharge and nonproductive cough. Patient denies the use of any emjy-chv-tvzpysi medications or home remedies for symptom management. Patient states recent sick contacts with similar signs and symptoms. Patient denies any productive cough, fever, chest pain, shortness of breath, pleuritic pain, rash, abdominal pain, nausea, vomiting or change in bowel or bladder habit. Past medical history prescription medications allergies reviewed. .Patient presents with: Cough: Congestion, sore throat, SHAW, sinus pressure, ears poppingx 4 days PAST MEDICAL HISTORY Diagnosis Date Allergic rhinitis, cause unspecified Allergic rhinitis Chronic hepatitis, unspecified (HCC) Noted that negative for chronic active Hep B or C. Fatty liver noted on US Degeneration of intervertebral disc, site unspecified Esophageal reflux GERD (gastroesophageal reflux disease) Hiatal hernia Malignant neoplasm of upper-inner quadrant of female breast (HCC) right breast, Chemo 1998 Meniere's disease, unspecified Meniere's disease Obesity, unspecified Osteoporosis, unspecified Polyp, colonic 03/2017 tubular adenoma Unspecified asthma(493.90) PAST SURGICAL HISTORY Procedure Laterality Date BIOPSY LIVER NEEDLE PERCUTANEOUS 11/07/2008 COLONOSCOPY W/BIOPSY SINGLE/MULTIPLE 04/08/2017 tubular adenoma in cecum; Dr. Pederson DILATION & CURETTAGE DX&/THER NONOBSTETRIC Dilation & curettage EGD TRANSORAL BIOPSY SINGLE/MULTIPLE 04/08/2017 H. pylori + ESOPHAGEAL MOTILITY STUDY W/INTERP&RPT 04/08/2017 LAPS RPR PARAESPHGL HRNA INCL FUNDPLSTY W/MESH 08/10/2018 Dr. Pederson LAPS SURG CHOLECYSTECTOMY W/CHOLANGIOGRAPHY 11/07/2008 NEUROPLASTY &/TRANSPOS MEDIAN NRV CARPAL TUNNE Carpal tunnel decomp, Bilateral PAST SURGICAL HISTORY OF 1998 Lumpectomy Right breast w/node biopsy PAST SURGICAL HISTORY OF all teeth extracted due to abcesses REMV CATARACT EXTRACAP,INSERT LENS Left 2021 ALLERGIES Adhesive Tape (Rosins), Bee Sting, Influenza Virus Vaccines, and Latex MEDICATIONS clobetasol (TEMOVATE) 0.05 % ointment Apply 1 application to affected area. Apply small amount to area nightly for 6 weeks then once weekly for maintenance ferrous sulfate 325 mg (65 mg iron) tablet Take 1 tablet by mouth every Tuesday,Tuesday,Tuesday. EVERY OTHER DAY esomeprazole (NEXIUM) 20 mg capsule TAKE 1 CAPSULE BY MOUTH DAILY 30 MINUTES BEFORE BREAKFAST meclizine (ANTIVERT) 12.5 mg tab Take 1 tablet by mouth three times daily as needed (dizziness). famotidine (PEPCID) 20 mg tablet Take 1 tablet by mouth twice daily. As directed albuterol HFA (VENTOLIN HFA) 90 mcg/actuation inhaler Inhale 2 Puffs as instructed every 4 hours as needed for wheezing/shortness of breath. MEDICATION, NON-DATABASE Turmeric GINKGO BILOBA ORAL Take by mouth. fluticasone (FLONASE) 50 mcg/actuation nasal spray Use 2 Sprays in each nostril once daily. Rinse mouth after use. BACILLUS COAGULANS (PROBIOTIC, B. COAGULANS, ORAL) Take 1 capsule by mouth once daily. Cholecalciferol, Vitamin D3, 5,000 unit cap Take 1 capsule by mouth once daily. THERAPEUTIC MULTIVITAMIN TAB Take one(1) tablet daily. CALCIUM 600 600 MG TAB Take one(1) tablet two(2) times daily. FAMILY HISTORY Problem Relation Age of Onset Heart Father , [place] Diabetes Mother Heart Mother Diabetes Maternal Grandmother Heart Maternal Aunt Breast Cancer Other great aunt x 3 Colon Cancer Other aunt Social History Tobacco Use Smoking status: Never Smokeless tobacco: Never Substance Use Topics Alcohol use: No Drug use: No BP 122/76 Pulse 93 Temp 37.2 C (99 F) Resp 21 Wt 65 kg (143 lb 3.2 oz) SpO2 99% BMI 27.06 kg/m Review of Systems Constitutional: Negative for chills, fever and malaise/fatigue. HENT: Positive for congestion and sore throat. Negative for ear discharge, ear pain and sinus pain. Eyes: Negative for blurred vision, pain, discharge and redness. Respiratory: Positive for cough. Negative for hemoptysis, sputum production, shortness of breath, wheezing and stridor. Cardiovascular: Negative for chest pain. Gastrointestinal: Negative for abdominal pain, diarrhea, nausea and vomiting. Musculoskeletal: Positive for myalgias. Skin: Negative for itching and rash. Neurological: Positive for headaches. Negative for dizziness. Objective Physical Exam Constitutional: General: She is not in acute distress. Appearance: She is not diaphoretic. HENT: Head: Normocephalic. Jaw: No trismus, tenderness, swelling or pain on movement. Nose: Congestion present. Mouth/Throat: Mouth: Mucous membranes are moist. Pharynx: Oropharynx is clear. Uvula midline. No pharyngeal swelling, oropharyngeal exudate, posterior oropharyngeal erythema or uvula swelling. Eyes: Conjunctiva/sclera: Conjunctivae normal. Pupils: Pupils are equal, round, and reactive to light. Cardiovascular: Rate and Rhythm: Normal rate and regular rhythm. Heart sounds: Normal heart sounds. Pulmonary: Effort: Pulmonary effort is normal. No tachypnea, accessory muscle usage or respiratory distress. Breath sounds: Normal breath sounds. No stridor. No wheezing, rhonchi or rales. Abdominal: General: There is no distension. Palpations: Abdomen is soft. Tenderness: There is no abdominal tenderness. There is no guarding or rebound. Musculoskeletal: Cervical back: Normal range of motion and neck supple. No edema, erythema, rigidity or tenderness. No pain with movement. Normal range of motion. Lymphadenopathy: Cervical: No cervical adenopathy. Skin: General: Skin is warm and dry. Neurological: Mental Status: She is alert and oriented to person, place, and time. ASSESSMENT/PLAN: 1. Viral illness - ICD9: 079.99, ICD10: B34.9 - Discussed viral etiology and rationale for treatment. - Symptomatic treatment with prn analgesia - Supportive care with fluids and rest - COVID & INFLUENZA A/B & RSV NAAT, ROUTINE Patient nontoxic-appearing. No evidence of bacterial infection. Test for COVID-19 and influenza. Recommended antiviral treatment if positive. Use Mucinex and cough suppressants as needed. Red flags for prompt reevaluation discussed. Patient was educated on supportive therapies. Patient will follow up with primary care provider as needed. Patient was instructed to immediately proceed to emergency room for any new, worsening, or symptoms lasting longer than anticipated. The patient's clinical presentation is otherwise unremarkable at this time. Based on exam and clinical finding, the patient is stable for discharge. Plan of care was discussed with patient. Patient verbalizes understanding and agrees to plan of care. This note was generated using Cloud [employer] software. It may contain errors in wording, punctuation, or spelling. Cliff Vaughn APRN.DANAE documented in this encounter [facility] 08-03-2023 Miscellaneous Notes noted Spoke with patient and explain that she needs to be seen to determine if an antibiotic is necessary. She states she just found out that she was exposed to bronchitis. Still feels unable to come for an appointment. Is going to continue to treat at home and will start using her inhaler. Agree, she should test for COVID but really should be seen to determine if antibiotics are necessary. Pt called in and reports she has a cough and is bringing up thick yellow mucus from her lungs, has a headache, runny nose, and weakness. This has been going on for the last 3-4 days, and reports yesterday she wasn't able to talk. Pt has been taking the Ashlee Greenwood cold an flu and it has been helping. Asked Pt if she had taken a Covid test and she has not, told her it would be a good idea, but doesn't sound like she is going to. She states she was just diagnosed with aortic stenosis which is contributing to the weakness. Pt states she is so weak she doesn't feel like going out and is asking if the provider would call her in an antibiotic to the [facility] in [place]. I let the Pt know that in order to get an antibiotic she would need to be seen, and if she has Covid she would need the antiviral not an antibiotic. Please call and advise. documented in this encounter [facility] 06-24-2023 Miscellaneous Notes Spoke with patient and scheduled is schedule to see Dr. Marie . Referral to general surgery has been put on hold until consult with Dr. Marie is completed. Pt called and is notified of providers results and instructions. Pt voices understanding. She was asking if this could be caused by the radiation she had for her cancer. Pt states she is going to think about where she would like consult sent, and call back in tomorrow. Vonnie Kohler, RN Please let Liset know her ultrasound of the heart shows that her aortic valve in her heart is stiff (aortic valve stenosis) and is not closing all of the way like it should (aortic insufficiency) and this is causing blood to leak around the valves and causing her heart murmur. This could be causing her fatigue. It is classified as moderate, not severe, it is not currently life threatening or an emergency but to help get the fatigue to improve I do recommend she see cardiology. I placed a referral. Please see where her preference is for the consult. documented in this encounter [facility] 06-15-2023 Miscellaneous Notes LEFT MESSAGE FOR PATIENT TO CALL OFFICE. Please call patient and let her know labs are back, urine dip was normal, liver function, kidney function, electrolytes, blood sugar, thyroid, blood counts are all stable and without concerning findings. Hepatitis testing is negative for hepatitis A, B and C. ECHO is scheduled for tomorrow so results should be back by Tuesday. documented in this encounter [facility] 06-14-2023 Note HNO ID: [id number] Author: Karolina Bryant APRN.CNP Service: ? Author Type: Nurse Practitioner Type: Progress Notes Filed: 06/14/2023 4:31 PM Note Text: ESTELLE March is a 78 year old female here today for a check up on her medical problems. Chief Complaint Patient presents with: Fatigue: on going for about 2 months. is taking iron for anemia and levels have improved does snore when she sleeps Flank Pain: right side for about 2 months no injury but sore/tender to touch HPI Carmela Deboard is a 78 year old female. Here today for continued issues with persistent fatigue. Onset 2-3 months ago. Has had issues with bleeding hemorrhoids. Had them banded. Seeing Dr. Knutson to discuss hemorrhoid removal due to the blood loss. Possible cause of her fatigue but recent labs stable. Had hepatitis B years ago. Wondering about liver function and possible liver infection. Sleeping okay, sometimes ok sometimes not great. Some times trouble falling asleep. Some issues staying asleep. She does snore. Appetite is okay. Some nausea, no vomiting. No chest pain, no chest tightness and no shortness of breath. No abdominal pain. Feet swell at times. Denies depression. Her medications were reviewed today and her list is now up to date. Medications Current Outpatient Medications Medication Sig clobetasol (TEMOVATE) 0.05 % ointment Apply 1 application to affected area. Apply small amount to area nightly for 6 weeks then once weekly for maintenance ferrous sulfate 325 mg (65 mg iron) tablet Take 1 tablet by mouth every Tuesday,Tuesday,Tuesday. EVERY OTHER DAY esomeprazole (NEXIUM) 20 mg capsule TAKE 1 CAPSULE BY MOUTH DAILY 30 MINUTES BEFORE BREAKFAST meclizine (ANTIVERT) 12.5 mg tab Take 1 tablet by mouth three times daily as needed (dizziness). famotidine (PEPCID) 20 mg tablet Take 1 tablet by mouth twice daily. As directed albuterol HFA (VENTOLIN HFA) 90 mcg/actuation inhaler Inhale 2 Puffs as instructed every 4 hours as needed for wheezing/shortness of breath. MEDICATION, NON-DATABASE Turmeric GINKGO BILOBA ORAL Take by mouth. fluticasone (FLONASE) 50 mcg/actuation nasal spray Use 2 Sprays in each nostril once daily. Rinse mouth after use. BACILLUS COAGULANS (PROBIOTIC, B. COAGULANS, ORAL) Take 1 capsule by mouth once daily. Cholecalciferol, Vitamin D3, 5,000 unit cap Take 1 capsule by mouth once daily. THERAPEUTIC MULTIVITAMIN TAB Take one(1) tablet daily. CALCIUM 600 600 MG TAB Take one(1) tablet two(2) times daily. No current facility-administered medications for this visit. ALLERGIES Allergen Reactions Adhesive Tape (Shanon* Other: See Comments Bee Sting Swelling Influenza Virus Vac* GI Upset Latex Itching ACTIVE PROBLEM LIST Gastroesophageal Reflux Disease Without Esophagitis - 07/05/2018 Comment: Added automatically from request for surgery [id number] Spinal Stenosis, Lumbar Region, With Neurogenic Claudication - 01/16/2018 Chronic Bilateral Low Back Pain With Sciatica - 06/15/2016 Female Bladder Prolapse - 11/28/2013 Hypoactive Sexual Desire - 07/25/2012 Lichen Sclerosus Et Atrophicus of The Vulva - 08/31/2011 Vitamin D Deficiency - 03/30/2011 Calculus of Gallbladder With Other Cholecystitis, Without Mention of Obstruction - 10/23/2008 Lesion of Plantar Nerve - 12/28/2007 Pain in Limb - 12/28/2007 Bunion - 12/14/2007 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 Respiratory: Negative. Cardiovascular: Negative. OBJECTIVE BP 130/80 Pulse 78 Wt 140 lb (63.5kg) SpO2 98% Physical Exam Vitals and nursing note reviewed. Constitutional: General: She is awake. She is not in acute distress. Appearance: Normal appearance. She is well-developed and well-groomed. She is not ill-appearing, toxic-appearing or diaphoretic. HENT: Head: Normocephalic. Right Ear: External ear normal. Left Ear: External ear normal. Nose: Nose normal. Eyes: General: Vision grossly intact. Conjunctiva/sclera: Conjunctivae normal. Pupils: Pupils are equal, round, and reactive to light. Neck: Vascular: No JVD. Trachea: Trachea normal. Cardiovascular: Rate and Rhythm: Normal rate and regular rhythm. Pulses: Normal pulses. Heart sounds: Murmur heard. Pulmonary: Effort: Pulmonary effort is normal. No accessory muscle usage, prolonged expiration or respiratory distress. Breath sounds: Normal breath sound (more content not included)... [facility] 06-13-2023 Note HNO ID: [id number] Author: Oleg Ramos Mammo Tech Service: ? Author Type: Technologist Type: Progress Notes Filed: 06/13/2023 1:21 PM Note Text: Radiology Service Progress Note PATIENT NAME: Carmela March DATE OF SERVICE: June 13, 2023 TIME: 1:21 PM PATIENT IDENTITY VERIFICATION COMPLETED USING TWO (2) IDENTIFIERS: Name and Date of confirmed by patient verbally. FALL SCREENING: Has the patient had 2 falls in the last year or 1 fall with injury or currently using an Ambulatory Assistive Device (Walker, Cane, Wheelchair, Crutches, etc.)? No PATIENT GENDER DATA: Female. status: : No status: NO. PATIENT RELEVANT IMPLANT DATA REVIEWED: Not Applicable RADIOLOGY DEPARTMENT: Mammography PERIPHERAL IV DATA: Not applicable SIGNED BY: Ania Ferreira June 13, 2023 1:21 PM [facility] 06-13-2023 Miscellaneous Notes June 14, 2023 PID: [id number] Carmela March [address] [place] [address] Dear Ms. March, We are pleased to inform you that the results of your recent breast imaging exam on 06/13/2023 are normal. Early detection of cancer is very important. We also understand recommendations regarding breast cancer screening are controversial. Please discuss with your primary care provider which strategy is best for you and whether a mammogram is right for you. Your imaging studies and report will be kept on file at [facility] as part of your permanent medical record and are available for your continuing care. Thank you for allowing us to help in meeting your health care needs. Sincerely, Dr. Amin Interpreting Radiologist [facility] (Normal over 40) documented in this encounter [facility] 06-13-2023 History of Present illness Narrative Radiology Service Progress Note PATIENT NAME: Carmela March DATE OF SERVICE: June 13, 2023 TIME: 1:21 PM PATIENT IDENTITY VERIFICATION COMPLETED USING TWO (2) IDENTIFIERS: Name and Date of confirmed by patient verbally. FALL SCREENING: Has the patient had 2 falls in the last year or 1 fall with injury or currently using an Ambulatory Assistive Device (Walker, Cane, Wheelchair, Crutches, etc.)? No PATIENT GENDER DATA: Female. status: : No status: NO. PATIENT RELEVANT IMPLANT DATA REVIEWED: Not Applicable RADIOLOGY DEPARTMENT: Mammography PERIPHERAL IV DATA: Not applicable SIGNED BY: Ania Ferreira June 13, 2023 1:21 PM documented in this encounter [facility] 05-23-2023 Note HNO ID: [id number] Author: Renate Waldron MD Service: ? Author Type: Physician Type: Progress Notes Filed: 06/10/2023 6:28 PM Note Text: This note was created using Nveloped. Subjective Carmela March is a 78 year old female. Patient presents with: F/U 6 months SUBJECTIVE: Carmela March is a 78 year old year old lady here today for 6 month follow up appointment for review of medical conditions. Taking iron M-W-F. Has tried to stop Nexium and reflux would recur. Has had hemorrhoids banded twice. Still prolapsing and bleeding. Considering seeing Dr. Paul Knutson since other surgeon did not want to do the surgery. Limits her activity since not comfortable with the bleeding. Wears a pad. Changes twice daily. Needed order for mammogram. PAST MEDICAL HISTORY Diagnosis Date Allergic rhinitis, cause unspecified Allergic rhinitis Chronic hepatitis, unspecified (HCC) Noted that negative for chronic active Hep B or C. Fatty liver noted on US Degeneration of intervertebral disc, site unspecified Esophageal reflux GERD (gastroesophageal reflux disease) Hiatal hernia Malignant neoplasm of upper-inner quadrant of female breast (HCC) right breast, Chemo 1998 Meniere's disease, unspecified Meniere's disease Obesity, unspecified Osteoporosis, unspecified Polyp, colonic 03/2017 tubular adenoma Unspecified asthma(493.90) Current Outpatient Medications Medication Sig esomeprazole (NEXIUM) 20 mg capsule TAKE 1 CAPSULE BY MOUTH DAILY 30 MINUTES BEFORE BREAKFAST meclizine (ANTIVERT) 12.5 mg tab Take 1 tablet by mouth three times daily as needed (dizziness). ferrous sulfate 325 mg (65 mg iron) tablet Take 1 tablet by mouth every Tuesday,Tuesday,Tuesday. EVERY OTHER DAY famotidine (PEPCID) 20 mg tablet Take 1 tablet by mouth twice daily. As directed albuterol HFA (VENTOLIN HFA) 90 mcg/actuation inhaler Inhale 2 Puffs as instructed every 4 hours as needed for wheezing/shortness of breath. MEDICATION, NON-DATABASE Turmeric GINKGO BILOBA ORAL Take by mouth. fluticasone (FLONASE) 50 mcg/actuation nasal spray Use 2 Sprays in each nostril once daily. Rinse mouth after use. clobetasol (TEMOVATE) 0.05 % ointment Apply 1 application to affected area. Apply small amount to area nightly for 6 weeks then once weekly for maintenance BACILLUS COAGULANS (PROBIOTIC, B. COAGULANS, ORAL) Take 1 capsule by mouth once daily. Cholecalciferol, Vitamin D3, 5,000 unit cap Take 1 capsule by mouth once daily. THERAPEUTIC MULTIVITAMIN TAB Take one(1) tablet daily. CALCIUM 600 600 MG TAB Take one(1) tablet two(2) times daily. benzonatate (TESSALON PERLES) 100 mg capsule Take 1-2 capsules by mouth three times daily as needed. (Patient not taking: Reported on 10/27/2022) LECITHIN ORAL Take by mouth once daily. (Patient not taking: Reported on 06/18/2022) No current facility-administered medications for this visit. Review of Systems Objective BP 143/77 Pulse 84 Temp 37.2 ?C (99 ?F) Resp 18 Wt 64 kg (141 lb) SpO2 98% BMI 26.64 kg/m? Last 5 Encounter Wt Readings: Date: Wt: 05/23/2023 64 kg (141 lb) 12/20/2022 64 kg (141 lb) 10/27/2022 61.7 kg (136 lb) 09/14/2022 60.4 kg (133 lb 3.2 oz) 07/07/2022 62.6 kg (138 lb) No waist measurement recorded Estimated body mass index is 26.64 kg/m? as calculated from the following: Height as of 12/20/22: 154.9 cm (5' 1 ). Weight as of this encounter: 64 kg (141 lb). Last 5 Encounter BP Readings: Date: BP: 05/23/2023 143/77 12/20/2022 156/84 10/27/2022 128/64 09/14/2022 122/70 07/07/2022 148/76 Physical Exam Constitutional: Appearance: Normal appearance. HENT: Head: Normocephalic. Eyes: Conjunctiva/sclera: Conjunctivae normal. Cardiovascular: Rate and Rhythm: Normal rate and regular rhythm. Heart sounds: Normal heart sounds. Pulmonary: Effort: Pulmonary effort is normal. Breath sounds: Normal breath sounds. Skin: General: Skin is warm and dry. Neurological: General: No focal deficit present. Mental Status: She is alert and oriented to person, place, and time. Psychiatric: Mood and Affect: Mood normal. Behavior: Behavior normal. Thought Content: Thought content normal. Judgment: Judgment normal. Last labs noted. Assessment and Plan Encounter Diagnosis ICD-10-CM 1. Other iron deficiency anemia D50.8 ferrous sulfate 325 mg (65 mg iron) tablet CBC VITAMIN B12 BLOOD IRON + TIBC FOLATE SERUM FERRITIN BLD from rectal bleeding; see surgeon as needed to treat 2. Gastroesophageal reflux disease without esophagitis K21.9 Recurs if tries to stop PPI so needs to stay on med. Effective 3. Leg cramp R25.2 MAGNESIUM BLD 4. Dense breasts R92.2 BOBBI SCREENING W MADI 5. Vitamin D deficiency E55.9 VITAMIN D 25 HYDROXY 6. Breast cancer screening by mammogram Z12.31 BOBBI SCREENING W MADI 7. Encounter for long-term current use of medication Z79.899 MAGNESIUM BLD 8. Blee (more content not included)... [facility] 05-23-2023 History of Present illness Narrative This note was created using Nveloped. Subjective Carmela March is a 78 year old female. Patient presents with: F/U 6 months SUBJECTIVE: Carmela March is a 78 year old year old lady here today for 6 month follow up appointment for review of medical conditions. Taking iron -W-. Has tried to stop Nexium and reflux would recur. Has had hemorrhoids banded twice. Still prolapsing and bleeding. Considering seeing Dr. Paul Knutson since other surgeon did not want to do the surgery. Limits her activity since not comfortable with the bleeding. Wears a pad. Changes twice daily. Needed order for mammogram. PAST MEDICAL HISTORY Diagnosis Date Allergic rhinitis, cause unspecified Allergic rhinitis Chronic hepatitis, unspecified (HCC) Noted that negative for chronic active Hep B or C. Fatty liver noted on US Degeneration of intervertebral disc, site unspecified Esophageal reflux GERD (gastroesophageal reflux disease) Hiatal hernia Malignant neoplasm of upper-inner quadrant of female breast (HCC) right breast, Chemo 1998 Meniere's disease, unspecified Meniere's disease Obesity, unspecified Osteoporosis, unspecified Polyp, colonic 03/2017 tubular adenoma Unspecified asthma(493.90) Current Outpatient Medications Medication Sig esomeprazole (NEXIUM) 20 mg capsule TAKE 1 CAPSULE BY MOUTH DAILY 30 MINUTES BEFORE BREAKFAST meclizine (ANTIVERT) 12.5 mg tab Take 1 tablet by mouth three times daily as needed (dizziness). ferrous sulfate 325 mg (65 mg iron) tablet Take 1 tablet by mouth every Tuesday,Tuesday,Tuesday. EVERY OTHER DAY famotidine (PEPCID) 20 mg tablet Take 1 tablet by mouth twice daily. As directed albuterol HFA (VENTOLIN HFA) 90 mcg/actuation inhaler Inhale 2 Puffs as instructed every 4 hours as needed for wheezing/shortness of breath. MEDICATION, NON-DATABASE Turmeric GINKGO BILOBA ORAL Take by mouth. fluticasone (FLONASE) 50 mcg/actuation nasal spray Use 2 Sprays in each nostril once daily. Rinse mouth after use. clobetasol (TEMOVATE) 0.05 % ointment Apply 1 application to affected area. Apply small amount to area nightly for 6 weeks then once weekly for maintenance BACILLUS COAGULANS (PROBIOTIC, B. COAGULANS, ORAL) Take 1 capsule by mouth once daily. Cholecalciferol, Vitamin D3, 5,000 unit cap Take 1 capsule by mouth once daily. THERAPEUTIC MULTIVITAMIN TAB Take one(1) tablet daily. CALCIUM 600 600 MG TAB Take one(1) tablet two(2) times daily. benzonatate (TESSALON PERLES) 100 mg capsule Take 1-2 capsules by mouth three times daily as needed. (Patient not taking: Reported on 10/27/2022) LECITHIN ORAL Take by mouth once daily. (Patient not taking: Reported on 06/18/2022) No current facility-administered medications for this visit. Review of Systems Objective BP 143/77 Pulse 84 Temp 37.2 C (99 F) Resp 18 Wt 64 kg (141 lb) SpO2 98% BMI 26.64 kg/m Last 5 Encounter Wt Readings: Date: Wt: 05/23/2023 64 kg (141 lb) 12/20/2022 64 kg (141 lb) 10/27/2022 61.7 kg (136 lb) 09/14/2022 60.4 kg (133 lb 3.2 oz) 07/07/2022 62.6 kg (138 lb) No waist measurement recorded Estimated body mass index is 26.64 kg/m as calculated from the following: Height as of 12/20/22: 154.9 cm (5' 1 ). Weight as of this encounter: 64 kg (141 lb). Last 5 Encounter BP Readings: Date: BP: 05/23/2023 143/77 12/20/2022 156/84 10/27/2022 128/64 09/14/2022 122/70 07/07/2022 148/76 Physical Exam Constitutional: Appearance: Normal appearance. HENT: Head: Normocephalic. Eyes: Conjunctiva/sclera: Conjunctivae normal. Cardiovascular: Rate and Rhythm: Normal rate and regular rhythm. Heart sounds: Normal heart sounds. Pulmonary: Effort: Pulmonary effort is normal. Breath sounds: Normal breath sounds. Skin: General: Skin is warm and dry. Neurological: General: No focal deficit present. Mental Status: She is alert and oriented to person, place, and time. Psychiatric: Mood and Affect: Mood normal. Behavior: Behavior normal. Thought Content: Thought content normal. Judgment: Judgment normal. Last labs noted. Assessment and Plan Encounter Diagnosis ICD-10-CM 1. Other iron deficiency anemia D50.8 ferrous sulfate 325 mg (65 mg iron) tablet CBC VITAMIN B12 BLOOD IRON + TIBC FOLATE SERUM FERRITIN BLD from rectal bleeding; see surgeon as needed to treat 2. Gastroesophageal reflux disease without esophagitis K21.9 Recurs if tries to stop PPI so needs to stay on med. Effective 3. Leg cramp R25.2 MAGNESIUM BLD 4. Dense breasts R92.2 BOBBI SCREENING W MADI 5. Vitamin D deficiency E55.9 VITAMIN D 25 HYDROXY 6. Breast cancer screening by mammogram Z12.31 BOBBI SCREENING W MADI 7. Encounter for long-term current use of medication Z79.899 MAGNESIUM BLD 8. Bleeding hemorrhoids K64.9 Above issues addressed with patient. Patient involved in shared decision making for management of medical issues. History and medications reviewed. Epic updated as needed Refills and/or prescriptions taken care of and meds adjusted as indicated after reviewed history, exam and labs. Health Maintenance reviewed. Updated record and/or ordered tests as recorded. Encouraged on efforts at healthy diet and regular exercise and adequate sleep. Further evaluation and treatment after lab results. Renate Waldron MD documented in this encounter [facility] 04-15-2023 Miscellaneous Notes Pt called and is notified of providers results. Pt voices understanding. She was asking what could be causing the low Hgb. She states she has hemorrhoids and has had them banded twice. She states the provider up at [facility] wasn't too keen on her having the hemorrhoidectomy surgery. She was wondering if this is something Dr Walrdon thinks might help, she states she has to have a pad on all the time. She was also asking her sister in law has a disorder where her bone marrow doesn't produce enough RBCs so she's anemic (maybe aplastic anemia?) she was asking if she could have this.Please call and advise. Vonnie Kohler RN CBC back, overall stable, the hemoglobin was just slightly low and this looks to be a chronic issue for her. Pt called and is notified of providers results. Pt voices understanding. Pt was asking about her iron levels. CBC was not run. Called [facility] and they will add a CBC to what they have. Notified Pt and let her know we would call her when the results were in. Vonnie Kohler RN Please let patient know hgba1c is back and stable, result is 5.6%, prior result from 6 months ago was 5.8% so she has moved out of the prediabetic range. documented in this encounter [facility] 04-11-2023 Miscellaneous Notes Patient has been identified by name and date of : Yes, Provider Dr Waldron Date 04/11/23 Time 1658. Patient phones for refill(s): Requested Prescriptions Pending Prescriptions Disp Refills esomeprazole (NEXIUM) 20 mg capsule [Pharmacy Med Name: ESOMEPRAZOLE MAGNESIUM 20 MG Capsule Delayed Release] 90 capsule 3 Sig: TAKE 1 CAPSULE BY MOUTH DAILY 30 MINUTES BEFORE BREAKFAST Date of last office visit in primary care: 10/27/22 Future visit: 05/23/23 Last 2 Encounter Wt Readings: Date: Wt: 12/20/2022 64 kg (141 lb) 10/27/2022 61.7 kg (136 lb) Previous labs/tests for medication: Blood Pressure: BUN (mg/dL) Date Value 10/15/2022 18 09/21/2021 18 Sodium (mmol/L) Date Value 10/15/2022 139 09/21/2021 141 Last 1 Encounter BP Readings: Date: BP: 12/20/2022 156/84 Liver Function: ALT (U/L) Date Value 10/15/2022 9 09/21/2021 15 AST (U/L) Date Value 10/15/2022 19 09/21/2021 28 Please advise. Thank you. Vonnie Kohler RN documented in this encounter [facility] 04-11-2023 Miscellaneous Notes Pt called and is notified of providers message and instructions. Pt voices understanding. Vonnie Kohler RN A1c ordered, can let her know. Also, we can prescribe future refills on the PPI, no problem. Patient calls to ask if she could have blood work to check her blood sugar added to her standing order CBC that she is going to have completed on Tuesday04/13/2023 to check anemia. She reports that about once a month she has an episode where she feels weak and sweaty. She will eat a 1/2 a peanut butter sandwich and within 30 minutes she feels fine. Pended A1C. Needs diagnosis. Patient also asking if provider would start filling her esomeprazole as she only has to follow up with general surgery as needed at this time. Currently pended in 04/08/2023 TE for general surgery. Viridiana Crump RN documented in this encounter [facility] 01-19-2023 Miscellaneous Notes JENNIFER: 10/27/2022 Last refill: 03/18/2022 QTY: 30 Refills: 1 Patient has been identified by name and date of : Yes Last office visit in this department: 10/27/2022 RX INSTRUCTIONS: Patient aware RX will be sent to pharmacy. No need to notify patient. Patient phones requesting refills as follows: Requested Prescriptions Pending Prescriptions Disp Refills meclizine (ANTIVERT) 12.5 mg tab 30 tablet 1 Sig: Take 1 tablet by mouth three times daily as needed (dizziness). Please review and advise. Liliya Bowman Pss documented in this encounter [facility] 12-20-2022 Note HNO ID: [id number] Author: Phil Dickerson MD Service: ? Author Type: Physician Type: Progress Notes Filed: 12/20/2022 8:45 AM Note Text: Phil Dickerson M.D. Colon AND Rectal Surgery [address] [facility], [address] [place] [address] ESTELLE March is a 77 year old White female with bleeding internal hemorrhoids causing prolapse and anemia HPI After the last banding session, she noted about 4 weeks of improvement in her symptoms of bleeding, but then these came back and have actually been a little worse lately than she recalls them being before. She has bleeding with most bowel movements and also notes a hemorrhoid that is out most of the time. She has been taking fiber but does not take it every day, maybe 5 out of 7 days in the week. She also has been trying to push more water but feels that she could do better. Review of Systems Constitutional: Negative for chills, fever and weight loss. HENT: Negative for congestion, ear pain, hearing loss, sinus pain and sore throat. Eyes: Negative for blurred vision, double vision and pain. Respiratory: Negative for cough, shortness of breath and wheezing. Cardiovascular: Negative for chest pain, palpitations and leg swelling. Gastrointestinal: Positive for constipation. Negative for abdominal pain, diarrhea, heartburn, nausea and vomiting. Genitourinary: Negative for dysuria, frequency and urgency. Musculoskeletal: Negative for back pain, joint pain and neck pain. Skin: Negative for itching and rash. Neurological: Negative for dizziness, weakness and headaches. Endo/Heme/Allergies: Negative for environmental allergies. Bruises/bleeds easily. Psychiatric/Behavioral: Negative for depression and memory loss. The patient is not nervous/anxious and does not have insomnia. PAST MEDICAL HISTORY Diagnosis Date Allergic rhinitis, cause unspecified Allergic rhinitis Chronic hepatitis, unspecified (HCC) Noted that negative for chronic active Hep B or C. Fatty liver noted on US Degeneration of intervertebral disc, site unspecified Esophageal reflux GERD (gastroesophageal reflux disease) Hiatal hernia Malignant neoplasm of upper-inner quadrant of female breast (HCC) right breast, Chemo 1998 Meniere's disease, unspecified Meniere's disease Obesity, unspecified Osteoporosis, unspecified Polyp, colonic 03/2017 tubular adenoma Unspecified asthma(493.90) PAST SURGICAL HISTORY Procedure Laterality Date BIOPSY LIVER NEEDLE PERCUTANEOUS 11/07/2008 COLONOSCOPY W/BIOPSY SINGLE/MULTIPLE 04/08/2017 tubular adenoma in cecum; Dr. Pederson DILATION AND CURETTAGE DXAND/THER NONOBSTETRIC Dilation AND curettage EGD TRANSORAL BIOPSY SINGLE/MULTIPLE 04/08/2017 H. pylori + ESOPHAGEAL MOTILITY STUDY W/INTERPANDRPT 04/08/2017 LAPS RPR PARAESPHGL HRNA INCL FUNDPLSTY W/MESH 08/10/2018 Dr. Dacia JAIN SURG CHOLECYSTECTOMY W/CHOLANGIOGRAPHY 11/07/2008 NEUROPLASTY AND/TRANSPOS MEDIAN NRV CARPAL TUNNE Carpal tunnel decomp, Bilateral PAST SURGICAL HISTORY OF 1998 Lumpectomy Right breast w/node biopsy PAST SURGICAL HISTORY OF all teeth extracted due to abcesses REMV CATARACT EXTRACAP,INSERT LENS Left 2021 Social History Tobacco Use Smoking status: Never Smokeless tobacco: Never Substance Use Topics Alcohol use: No Drug use: No FAMILY HISTORY Problem Relation Age of Onset Heart Father , [place] Diabetes Mother Heart Mother Diabetes Maternal Grandmother Heart Maternal Aunt Breast Cancer Other great aunt x 3 Colon Cancer Other aunt The ROS, medical, surgical, family, and social history were reviewed by Phil Dickerson MD ALLERGIES Allergen Reactions Adhesive Tape (Shanon* Other: See Comments Bee Sting Swelling Influenza Virus Vac* GI Upset Latex Itching Current Outpatient Medications Medication Sig ferrous sulfate 325 mg (65 mg iron) tablet Take 1 tablet by mouth every Tuesday,Tuesday,Tuesday. EVERY OTHER DAY famotidine (PEPCID) 20 mg tablet Take 1 tablet by mouth twice daily. As directed albuterol HFA (VENTOLIN HFA) 90 mcg/actuation inhaler Inhale 2 Puffs as instructed every 4 hours as needed for wheezing/shortness of breath. MEDICATION, NON-DATABASE Turmeric GINKGO BILOBA ORAL Take by mouth. meclizine (ANTIVERT) 12.5 mg tab Take 1 tablet by mouth three times daily as needed (dizziness). esomeprazole (NEXIUM) 20 mg capsule TAKE 1 CAPSULE BY MOUTH DAILY 30 MINUTES BEFORE BREAKFAST fluticasone (FLONASE) 50 mcg/actuation nasal spray Use 2 Sprays in each nostril once daily. Rinse mouth after use. clobetasol (TEMOVATE) 0.05 % ointment Apply 1 application to affected area. Apply small amount to area nightly for 6 weeks then once weekly for maintenance BACILLUS COAGULANS (PROBIOTIC, B. COAGULANS, ORAL) Take 1 capsule by mouth once daily. Cholecalciferol, Vitamin D3, 5,000 unit cap Take 1 capsule by mouth once xenia (more content not included)... [facility] 12-20-2022 Instructions Phil Dickerson MD - 12/20/2022 8:39 AM EDT Images from the original note were not included. HEMORRHOID BAND POST OP INSTRUCTIONS The following instructions will help you know what to expect in the days following your procedure. Do not, however, hesitate to call if you have questions or concerns. Expectations :Bleeding will decrease over time. Activity :Return to normal activity and heavy sports activities as tolerated. :There are no restrictions on lifting or driving unless you are taking narcotics. If you are taking narcotic medications, do not drive or lift heavy objects until you are off the medication for at least 24 hours. Pain Control :You may take acetaminophen (Tylenol ), 2 tablets every 6 hours as needed, or ibuprofen (Advil ), 2 tablets as needed for pain. Wound Care :Sitz baths are beneficial. (A stiz bath is a warm-water bath taken in the sitting position that covers only the hips and buttocks.) You may notice a small amount of bleeding afterwards. Special Instructions: Bowel function: :To keep the bowels soft, start Citrucel or Metamucil , 1 tablespoon daily, beginning on day one. :If you have constipation, use Milk of Magnesia , one ounce twice daily. Symptoms to be concerned about: :Difficulty urinating; if this occurs, call your doctor or go to your local emergency room. :Elevated temperature--101 degrees or higher. :Spreading area of redness around the wound. :Pain that is not relieved with the pain medication :Increase in the amount of bleeding/drainage or the presence of clots. Do not hesitate to call if you have any questions or concerns Again, if you have any difficulties or concerns between normal business hours contact our office immediately at [phone]. Phil Dickerson MD documented in this encounter [facility] 12-20-2022 History of Present illness Narrative Images from the original note were not included. Phil Dickerson M.D. Colon & Rectal Surgery [address] [facility], [address] [place] [address] ESTELLE March is a 77 year old White female with bleeding internal hemorrhoids causing prolapse and anemia HPI After the last banding session, she noted about 4 weeks of improvement in her symptoms of bleeding, but then these came back and have actually been a little worse lately than she recalls them being before. She has bleeding with most bowel movements and also notes a hemorrhoid that is out most of the time. She has been taking fiber but does not take it every day, maybe 5 out of 7 days in the week. She also has been trying to push more water but feels that she could do better. Review of Systems Constitutional: Negative for chills, fever and weight loss. HENT: Negative for congestion, ear pain, hearing loss, sinus pain and sore throat. Eyes: Negative for blurred vision, double vision and pain. Respiratory: Negative for cough, shortness of breath and wheezing. Cardiovascular: Negative for chest pain, palpitations and leg swelling. Gastrointestinal: Positive for constipation. Negative for abdominal pain, diarrhea, heartburn, nausea and vomiting. Genitourinary: Negative for dysuria, frequency and urgency. Musculoskeletal: Negative for back pain, joint pain and neck pain. Skin: Negative for itching and rash. Neurological: Negative for dizziness, weakness and headaches. Endo/Heme/Allergies: Negative for environmental allergies. Bruises/bleeds easily. Psychiatric/Behavioral: Negative for depression and memory loss. The patient is not nervous/anxious and does not have insomnia. PAST MEDICAL HISTORY Diagnosis Date Allergic rhinitis, cause unspecified Allergic rhinitis Chronic hepatitis, unspecified (HCC) Noted that negative for chronic active Hep B or C. Fatty liver noted on US Degeneration of intervertebral disc, site unspecified Esophageal reflux GERD (gastroesophageal reflux disease) Hiatal hernia Malignant neoplasm of upper-inner quadrant of female breast (HCC) right breast, Chemo 1998 Meniere's disease, unspecified Meniere's disease Obesity, unspecified Osteoporosis, unspecified Polyp, colonic 03/2017 tubular adenoma Unspecified asthma(493.90) PAST SURGICAL HISTORY Procedure Laterality Date BIOPSY LIVER NEEDLE PERCUTANEOUS 11/07/2008 COLONOSCOPY W/BIOPSY SINGLE/MULTIPLE 04/08/2017 tubular adenoma in cecum; Dr. Pederson DILATION & CURETTAGE DX&/THER NONOBSTETRIC Dilation & curettage EGD TRANSORAL BIOPSY SINGLE/MULTIPLE 04/08/2017 H. pylori + ESOPHAGEAL MOTILITY STUDY W/INTERP&RPT 04/08/2017 LAPS RPR PARAESPHGL HRNA INCL FUNDPLSTY W/MESH 08/10/2018 Dr. Dacia JAIN SURG CHOLECYSTECTOMY W/CHOLANGIOGRAPHY 11/07/2008 NEUROPLASTY &/TRANSPOS MEDIAN NRV CARPAL TUNNE Carpal tunnel decomp, Bilateral PAST SURGICAL HISTORY OF 1998 Lumpectomy Right breast w/node biopsy PAST SURGICAL HISTORY OF all teeth extracted due to abcesses REMV CATARACT EXTRACAP,INSERT LENS Left 2021 Social History Tobacco Use Smoking status: Never Smokeless tobacco: Never Substance Use Topics Alcohol use: No Drug use: No FAMILY HISTORY Problem Relation Age of Onset Heart Father , [place] Diabetes Mother Heart Mother Diabetes Maternal Grandmother Heart Maternal Aunt Breast Cancer Other great aunt x 3 Colon Cancer Other aunt The ROS, medical, surgical, family, and social history were reviewed by Phil Dickerson MD ALLERGIES Allergen Reactions Adhesive Tape (Shanon* Other: See Comments Bee Sting Swelling Influenza Virus Vac* GI Upset Latex Itching Current Outpatient Medications Medication Sig ferrous sulfate 325 mg (65 mg iron) tablet Take 1 tablet by mouth every Tuesday,Tuesday,Tuesday. EVERY OTHER DAY famotidine (PEPCID) 20 mg tablet Take 1 tablet by mouth twice daily. As directed albuterol HFA (VENTOLIN HFA) 90 mcg/actuation inhaler Inhale 2 Puffs as instructed every 4 hours as needed for wheezing/shortness of breath. MEDICATION, NON-DATABASE Turmeric GINKGO BILOBA ORAL Take by mouth. meclizine (ANTIVERT) 12.5 mg tab Take 1 tablet by mouth three times daily as needed (dizziness). esomeprazole (NEXIUM) 20 mg capsule TAKE 1 CAPSULE BY MOUTH DAILY 30 MINUTES BEFORE BREAKFAST fluticasone (FLONASE) 50 mcg/actuation nasal spray Use 2 Sprays in each nostril once daily. Rinse mouth after use. clobetasol (TEMOVATE) 0.05 % ointment Apply 1 application to affected area. Apply small amount to area nightly for 6 weeks then once weekly for maintenance BACILLUS COAGULANS (PROBIOTIC, B. COAGULANS, ORAL) Take 1 capsule by mouth once daily. Cholecalciferol, Vitamin D3, 5,000 unit cap Take 1 capsule by mouth once daily. THERAPEUTIC MULTIVITAMIN TAB Take one(1) tablet daily. CALCIUM 600 600 MG TAB Take one(1) tablet two(2) times daily. benzonatate (TESSALON PERLES) 100 mg capsule Take 1-2 capsules by mouth three times daily as needed. (Patient not taking: No sig reported) LECITHIN ORAL Take by mouth once daily. (Patient not taking: No sig reported) No current facility-administered medications for this visit. OBJECTIVE BP 156/84 (BP Site: Left Arm, BP Position: Sitting, BP Cuff Size: Regular Adult) Pulse 87 Ht 154.9 cm (5' 1 ) Wt 64 kg (141 lb) BMI 26.64 kg/m BMI 26.64 kg/(m^2) Physical Exam Constitutional: General: She is not in acute distress. Appearance: Normal appearance. She is not ill-appearing. Abdominal: General: There is no distension. Palpations: Abdomen is soft. Tenderness: There is no abdominal tenderness. Neurological: Mental Status: She is alert and oriented to person, place, and time. Psychiatric: Mood and Affect: Mood and affect normal. Judgment: Judgment normal. Perineum: On external examination there is a small amount of blood on her pad and in the perianal region. There is a left lateral enlarged and prolapsing internal hemorrhoid with ulcerated mucosa. This was able to be reduced. On digital rectal exam she was noted to have good tone, no palpable masses except for the enlarged hemorrhoid notable in the left lateral position. anoscopy was completed showing this enlarged hemorrhoid as well as a moderately enlarged right posterior internal hemorrhoid without bleeding or ulceration. Date: December 20, 2022 Patient: Carmela March AGE: [id number] year old : 1945 Operation: Band ligation of internal hemorrhoid(s). Surgeon: Phil Dickerson MD Pre-operative diagnosis: Internal hemorrhoids and bleeding. Post-operative diagnosis: Internal hemorrhoids and bleeding. Anesthesia: None. Indication: The patient has a history of bleeding and/or protrusion of internal hemorrhoids. Findings: Severely enlarged hemorrhoids were noted in the in the left lateral and moderately enlarged hemorrhoids in the right posterior tridents. Procedure: The risks, benefits, and alternatives of the procedure were discussed with the patient who consented. A timeout was performed verifying the correct patient, procedure, and procedural details. An anoscope was inserted into the anal canal. The hemorrhoid pedicles were defined and a Strong band was applied to the right posterior and left lateral hemorrhoids approximately 3 cm above the dentate line. The patient was discharged when comfortable with instructions as to outcome, complications, and follow-up. Drains: None. Specimen: None. Complications: None. Phil Dickerson MD Hemoglobin (g/dL) Date Value 11/29/2022 11.1 09/21/2021 11.3 Hematocrit (%) Date Value 11/29/2022 36.7 09/21/2021 37.0 WBC (k/uL) Date Value 11/29/2022 7.84 09/21/2021 7.41 Platelet Count (k/uL) Date Value 11/29/2022 327 09/21/2021 296 Creatinine Date Value Ref Range Status 10/15/2022 0.84 0.58 - 0.96 mg/dL Final AST Date Value Ref Range Status 10/15/2022 19 13 - 35 U/L Final ALT Date Value Ref Range Status 10/15/2022 9 7 - 38 U/L Final Bilirubin, Total (mg/dL) Date Value 10/15/2022 0.3 Antibody Screen (no units) Date Value 08/02/2018 NEGATIVE WBC (k/uL) Date Value 11/29/2022 7.84 RBC (m/uL) Date Value 11/29/2022 4.08 %DIG,%DBS Plan ASSESSMENT/PLAN: 1. Hemorrhoid prolapse - ICD9: 455.8, ICD10: K64.8 (primary diagnosis) 2. Bleeding hemorrhoid - ICD9: 455.8, ICD10: K64.9 We performed banding again today, she tolerated this well. Postprocedural instructions were given to her. I did discuss with her that the left lateral hemorrhoid column was fairly large and I am not sure if banding will be sufficient but that it be worth trying again today. If she does not have sufficient symptomatic improvement with this, I did discuss going up on the fiber supplement to twice daily and seeing how that helped, but otherwise would have to consider hemorrhoidectomy to improve the anemia which I do believe is being caused by this hemorrhoid. INFORMED CONSENT Carmela March Medical Record: [id number] Date: 12/20/2022 Procedure: Hemorrhoid banding The risks, benefits and anticipated outcomes of the procedure, the risks and benefits of the alternatives to the procedure and the roles and tasks of the personnel to be involved were discussed with the patient and the patient consents to the procedure and agrees to proceed. I verify that I personally obtained Carmela March's consent. Phil Dickerson MD Dept of [facility]PART[facility] Follow up: Return for For any new issues or concerns. Phil Dickerson M.D. Please Note: This office note has been created using [employer], a speech recognition software program, and may contain errors including punctuation, grammar, spelling, gender, and inappropriate words or phrases that pertain to the sytem. documented in this encounter [facility] 12-06-2022 Miscellaneous Notes PATIENT NOTIFIED OF SAME. She states that she does have problems with bleeding hemorrhoids and is scheduled to see Dr. Dickerson on 12/20/22. TC to patient with no answer. Line goes straight to VM with box being full, unable to leave message. Please try again later. EDITA Cannon Component Latest Ref Rng & Units 09/21/2021 10/15/2022 11/29/2022 WBC 3.70 - 11.00 k/uL 7.41 7.43 7.84 RBC 3.90 - 5.20 m/uL 3.91 3.79 (L) 4.08 Hemoglobin 11.5 - 15.5 g/dL 11.3 (L) 10.4 (L) 11.1 (L) Hematocrit 36.0 - 46.0 % 37.0 33.0 (L) 36.7 MCV 80.0 - 100.0 fL 94.6 87.1 90.0 MCH 26.0 - 34.0 pg 28.9 27.4 27.2 MCHC 30.5 - 36.0 g/dL 30.5 31.5 30.2 (L) RDW-CV 11.5 - 15.0 % 14.1 14.8 18.6 (H) Platelet Count 150 - 400 k/uL 296 379 327 MPV 9.0 - 12.7 fL 10.3 8.9 (L) 10.0 Absolute nRBC <0.01 k/uL <0.01 <0.01 <0.01 Let her know Hg is back up to 11.1 from 10.4. Almost within normal limits Hematocrit is up to normal at 36.7 Continue iron Is she having persistent problems with bleeding hemorrhoids? Did she see Dr. Dickerson yet? Patient calling for lab results done 11/29/22. Dinora Cody RN documented in this encounter [facility] 10-27-2022 Note HNO ID: [id number] Author: Renate Waldron MD Service: ? Author Type: Physician Type: Progress Notes Filed: 11/26/2022 12:31 AM Note Text: This note was created using [employer]'m Here[employer]. Subjective Carmela March is a 77 year old female. Patient presents with: F/U 6 months: Labs prior SUBJECTIVE: Carmela March is a 77 year old year old lady here today for 6 month follow up appointment for review of medical conditions. Head has been giving me a heck of a time Stabbing pain--sinus pain. Tender and sore over sinuses. Coughing up some brown mucus. Nose bleeds noted. Sinuses draining a lot. Started a couple weeks ago. Also had pneumonia and was treated through [facility]. 1/3 Seen. Sick prior to [place]. Grandkids are also sick again. Throwing up and fever. No direct exposure but takes care of the 4yo 2 days a week. Noted issues with recurrent bleeding from hemorrhoids. No constipation. Sometimes gets feces on her pad. Will follow up with Dr. Phil Dickerson. 04/08/2017--results of pathology showed had polyp in cecum. Noted that cannot find colonoscopy report in [facility]. Does have--will drop off copy; [facility]POA . PAST MEDICAL HISTORY Diagnosis Date Allergic rhinitis, cause unspecified Allergic rhinitis Chronic hepatitis, unspecified (HCC) Noted that negative for chronic active Hep B or C. 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 MEDICATION, NON-DATABASE Turmeric GINKGO BILOBA ORAL Take by mouth. meclizine (ANTIVERT) 12.5 mg tab Take 1 tablet by mouth three times daily as needed (dizziness). esomeprazole (NEXIUM) 20 mg capsule TAKE 1 CAPSULE BY MOUTH DAILY 30 MINUTES BEFORE BREAKFAST fluticasone (FLONASE) 50 mcg/actuation nasal spray Use 2 Sprays in each nostril once daily. Rinse mouth after use. famotidine (PEPCID) 20 mg tablet Take 1 tablet by mouth twice daily. clobetasol (TEMOVATE) 0.05 % ointment Apply 1 application to affected area. Apply small amount to area nightly for 6 weeks then once weekly for maintenance BACILLUS COAGULANS (PROBIOTIC, B. COAGULANS, ORAL) Take 1 capsule by mouth once daily. Cholecalciferol, Vitamin D3, 5,000 unit cap Take 1 capsule by mouth once daily. THERAPEUTIC MULTIVITAMIN TAB Take one(1) tablet daily. CALCIUM 600 600 MG TAB Take one(1) tablet two(2) times daily. benzonatate (TESSALON PERLES) 100 mg capsule Take 1-2 capsules by mouth three times daily as needed. (Patient not taking: Reported on 10/27/2022) ferrous sulfate 325 mg (65 mg iron) tablet Take 325 mg by mouth daily with breakfast. EVERY OTHER DAY (Patient not taking: Reported on 10/27/2022) LECITHIN ORAL Take by mouth once daily. (Patient not taking: No sig reported) No current facility-administered medications for this visit. Review of Systems Objective BP 128/64 Pulse 102 Temp 36.4 ?C (97.5 ?F) Resp 18 Wt 61.7 kg (136 lb) SpO2 98% BMI 25.70 kg/m? Last 5 Encounter Wt Readings: Date: Wt: 10/27/2022 61.7 kg (136 lb) 09/14/2022 60.4 kg (133 lb 3.2 oz) 07/07/2022 62.6 kg (138 lb) 06/18/2022 62.1 kg (137 lb) 04/28/2022 60.8 kg (134 lb) No waist measurement recorded Estimated body mass index is 25.7 kg/m? as calculated from the following: Height as of 07/07/22: 154.9 cm (5' 1 ). Weight as of this encounter: 61.7 kg (136 lb). Last 5 Encounter BP Readings: Date: BP: 10/27/2022 128/64 09/14/2022 122/70 07/07/2022 148/76 06/18/2022 132/64 04/28/2022 117/78 Physical Exam Constitutional: Appearance: Normal appearance. HENT: Head: Normocephalic. Comments: Tenderness over frontal greater than maxillary sinuses Eyes: Conjunctiva/sclera: Conjunctivae normal. Cardiovascular: Rate and Rhythm: Normal rate and regular rhythm. Heart sounds: Normal heart sounds. Pulmonary: Effort: Pulmonary effort is normal. Breath sounds: Normal breath sounds. Skin: General: Skin is warm and dry. Neurological: General: No focal deficit present. Mental Status: She is alert and oriented to person, place, and time. Psychiatric: Attention and Perception: Attention and perception normal. Mood and Affect: Mood and affect normal. Speech: Speech normal. Behavior: Behavior normal. Thought Content: Thought content normal. Cognition and Memory: Cognition and memory normal. Judgment: Judgment normal. Component Latest Ref Rng AND Units 09/21/2021 03/12/2022 (more content not included)... [facility] 10-27-2022 History of Present illness Narrative This note was created using [employer]. Subjective Carmela March is a 77 year old female. Patient presents with: F/U 6 months: Labs prior SUBJECTIVE: Carmela March is a 77 year old year old lady here today for 6 month follow up appointment for review of medical conditions. Head has been giving me a heck of a time Stabbing pain--sinus pain. Tender and sore over sinuses. Coughing up some brown mucus. Nose bleeds noted. Sinuses draining a lot. Started a couple weeks ago. Also had pneumonia and was treated through [facility]. 09/14 Seen. Sick prior to [place]. Grandkids are also sick again. Throwing up and fever. No direct exposure but takes care of the 4yo 2 days a week. Noted issues with recurrent bleeding from hemorrhoids. No constipation. Sometimes gets feces on her pad. Will follow up with Dr. Phil Dickerson. 04/08/2017--results of pathology showed had polyp in cecum. Noted that cannot find colonoscopy report in [facility] Does have--will drop off copy; HCDPOA . PAST MEDICAL HISTORY Diagnosis Date Allergic rhinitis, cause unspecified Allergic rhinitis Chronic hepatitis, unspecified (HCC) Noted that negative for chronic active Hep B or C. 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 MEDICATION, NON-DATABASE Turmeric GINKGO BILOBA ORAL Take by mouth. meclizine (ANTIVERT) 12.5 mg tab Take 1 tablet by mouth three times daily as needed (dizziness). esomeprazole (NEXIUM) 20 mg capsule TAKE 1 CAPSULE BY MOUTH DAILY 30 MINUTES BEFORE BREAKFAST fluticasone (FLONASE) 50 mcg/actuation nasal spray Use 2 Sprays in each nostril once daily. Rinse mouth after use. famotidine (PEPCID) 20 mg tablet Take 1 tablet by mouth twice daily. clobetasol (TEMOVATE) 0.05 % ointment Apply 1 application to affected area. Apply small amount to area nightly for 6 weeks then once weekly for maintenance BACILLUS COAGULANS (PROBIOTIC, B. COAGULANS, ORAL) Take 1 capsule by mouth once daily. Cholecalciferol, Vitamin D3, 5,000 unit cap Take 1 capsule by mouth once daily. THERAPEUTIC MULTIVITAMIN TAB Take one(1) tablet daily. CALCIUM 600 600 MG TAB Take one(1) tablet two(2) times daily. benzonatate (TESSALON PERLES) 100 mg capsule Take 1-2 capsules by mouth three times daily as needed. (Patient not taking: Reported on 10/27/2022) ferrous sulfate 325 mg (65 mg iron) tablet Take 325 mg by mouth daily with breakfast. EVERY OTHER DAY (Patient not taking: Reported on 10/27/2022) LECITHIN ORAL Take by mouth once daily. (Patient not taking: No sig reported) No current facility-administered medications for this visit. Review of Systems Objective BP 128/64 Pulse 102 Temp 36.4 C (97.5 F) Resp 18 Wt 61.7 kg (136 lb) SpO2 98% BMI 25.70 kg/m Last 5 Encounter Wt Readings: Date: Wt: 10/27/2022 61.7 kg (136 lb) 09/14/2022 60.4 kg (133 lb 3.2 oz) 07/07/2022 62.6 kg (138 lb) 06/18/2022 62.1 kg (137 lb) 04/28/2022 60.8 kg (134 lb) No waist measurement recorded Estimated body mass index is 25.7 kg/m as calculated from the following: Height as of 07/07/22: 154.9 cm (5' 1 ). Weight as of this encounter: 61.7 kg (136 lb). Last 5 Encounter BP Readings: Date: BP: 10/27/2022 128/64 09/14/2022 122/70 07/07/2022 148/76 06/18/2022 132/64 04/28/2022 117/78 Physical Exam Constitutional: Appearance: Normal appearance. HENT: Head: Normocephalic. Comments: Tenderness over frontal greater than maxillary sinuses Eyes: Conjunctiva/sclera: Conjunctivae normal. Cardiovascular: Rate and Rhythm: Normal rate and regular rhythm. Heart sounds: Normal heart sounds. Pulmonary: Effort: Pulmonary effort is normal. Breath sounds: Normal breath sounds. Skin: General: Skin is warm and dry. Neurological: General: No focal deficit present. Mental Status: She is alert and oriented to person, place, and time. Psychiatric: Attention and Perception: Attention and perception normal. Mood and Affect: Mood and affect normal. Speech: Speech normal. Behavior: Behavior normal. Thought Content: Thought content normal. Cognition and Memory: Cognition and memory normal. Judgment: Judgment normal. Component Latest Ref Rng & Units 09/21/2021 03/12/2022 10/15/2022 Protein, Total 6.3 - 8.0 g/dL 7.5 7.5 Albumin 3.9 - 4.9 g/dL 4.4 4.0 Calcium 8.5 - 10.2 mg/dL 9.9 9.1 Bilirubin, Total 0.2 - 1.3 mg/dL 0.3 0.3 Alkaline Phosphatase 34 - 123 U/L 63 62 AST 13 - 35 U/L 28 19 Glucose 74 - 99 mg/dL 88 98 BUN 7 - 21 mg/dL 18 18 Creatinine 0.58 - 0.96 mg/dL 0.87 0.84 Sodium 136 - 144 mmol/L 141 139 Potassium 3.7 - 5.1 mmol/L 4.3 4.2 Chloride 97 - 105 mmol/L 103 102 CO2 22 - 30 mmol/L 25 26 Anion Gap 9 - 18 mmol/L 13 11 ALT 7 - 38 U/L 15 9 eGFR- >60 eGFR-All Other Races . >60 eGFR >=60 mL/min/1.73m 71 WBC 3.70 - 11.00 k/uL 7.41 7.43 RBC 3.90 - 5.20 m/uL 3.91 3.79 (L) Hemoglobin 11.5 - 15.5 g/dL 11.3 (L) 10.4 (L) Hematocrit 36.0 - 46.0 % 37.0 33.0 (L) MCV 80.0 - 100.0 fL 94.6 87.1 MCH 26.0 - 34.0 pg 28.9 27.4 MCHC 30.5 - 36.0 g/dL 30.5 31.5 RDW-CV 11.5 - 15.0 % 14.1 14.8 Platelet Count 150 - 400 k/uL 296 379 MPV 9.0 - 12.7 fL 10.3 8.9 (L) Absolute nRBC <0.01 k/uL <0.01 <0.01 Cholesterol, Total <200 mg/dL 179 Triglyceride <150 mg/dL 61 HDL Cholesterol >39 mg/dL 63 Non HDL Cholesterol <130 mg/dL 116 Fasting Time hrs 14 VLDL Cholesterol <30 mg/dL 12 TC:HDL Ratio <5.10 2.84 LDL Cholesterol <100 mg/dL 104 (H) LDL:HDL Ratio <2.54 1.65 Iron 41 - 186 ug/dL 46 27 (L) TIBC 232 - 386 ug/dL 400 (H) 400 (H) Transferrin Saturation 15.0 - 57.0 % 11.5 (L) 6.8 (L) Hemoglobin A1C 4.3 - 5.6 % 5.8 (H) Estimated Average Glucose mg/dL 120 Magnesium 1.7 - 2.3 mg/dL 2.2 Vitamin D 25 Hydroxy 31.0 - 80.0 ng/mL 66.4 79.6 Ferritin 14.7 - 205.1 ng/mL 11.2 (L) 16.9 Folate >4.7 ng/mL >20.0 18.5 Vitamin B12 232 - 1,245 pg/mL 605 799 FINAL DIAGNOSIS: A) STOMACH, ANTRUM, BIOPSY - ACUTE AND CHRONIC GASTRITIS WITH HELICOBACTER PYLORI IDENTIFIED ON IMMUNOHISTOCHEMICAL STAIN. SEE COMMENT. B) GASTROESOPHAGEAL JUNCTION, BIOPSY - BENIGN SQUAMOUS EPITHELIUM SHOWING NO PATHOLOGIC ABNORMALITIES. ALCIAN BLUE/PAS STAIN IS NEGATIVE FOR INTESTINAL METAPLASIA. C) CECUM, BIOPSY - TUBULAR ADENOMA. COMMENT: This case was evaluated using a laboratory developed test (H. pylori). CONVERTED GROSS DESCRIPTION GROSS DESCRIPTION: A) Antral biopsies The specimen is labeled and designated Deboard, Carmela, antral biopsy. Received in formalin, a single 0.5 cm carlisle fragment submitted in total in cassette A, levels x 3. H. pylori. B) GE junction biopsy The specimen is labeled and designated Deboard, Carmela, GE junction biopsy. Received in formalin, a single 0.3 cm carlisle fragment submitted in total in cassette B, levels x 3. AB/PAS C) Cecal polyp The specimen is labeled and designated Deboard, Carmela, cecal polyp. Received in formalin, multiple carlisle fragments, together 1 x 1 x 0.3 cm, submitted in total in cassette C, levels x 3. ELH:hlm CONVERTED CLINICAL HISTORY OPERATIVE PROCEDURE: EGD / Mano / colon CLINICAL INFORMATION: GERD, rectal bleeding CONVERTED ELECTRONIC SIGNATURE JOSH ASCENCIO M.D., PATHOLOGIST (Electronic signature on file) Final Signed Out: 04/11/2017 13:29 CONVERTED ORDERING PROVIDER Assessment and Plan Encounter Diagnosis ICD-10-CM 1. Acute non-recurrent frontal sinusitis J01.10 amoxicillin-clavulanic acid (AUGMENTIN) 875-125 mg per tablet 2. Bleeding hemorrhoids K64.9 3. Other iron deficiency anemia D50.8 ferrous sulfate 325 mg (65 mg iron) tablet from rectal bleeding 4. Vitamin D deficiency E55.9 5. Gastroesophageal reflux disease without esophagitis K21.9 famotidine (PEPCID) 20 mg tablet Above issues addressed with patient. Patient involved in shared decision making for management of medical issues. History and medications reviewed. Epic updated as needed Refills and/or prescriptions taken care of and meds adjusted as indicated after reviewed history, exam and labs. Health Maintenance reviewed. Updated record and/or ordered tests as recorded. Encouraged on efforts at healthy diet and regular exercise and adequate sleep. I spent a total of 43 minutes on the date of the service which included [id number] patient care, completing clinical documentation, obtaining and/or reviewing separately obtained history, performing a medically appropriate examination, and counseling and educating the patient/family/caregiver. Renate Waldron MD documented in this encounter [facility] 10-20-2022 Miscellaneous Notes PATIENT NOTIFIED OF SAME. Since appointment is in the next week if patient is agreeable I would advise she wait until coming in and provider can go over labs with her in person at . Patient had labs completed 10/15/22. Please review and advise. Has an appointment 10/27/22. Attempted to contact patient but no answer and voice mailbox is not set up. Labs ordered Patient calling to ask if any labs needed prior to appointment scheduled on 10/27/22? She's scheduled for 6 month follow up. Had labs done 09/21/21. Iron study labs in 04/02. Dinora Cody RN documented in this encounter [facility] 09-15-2022 Miscellaneous Notes Patient given results and verbalized understanding of instructions given. Radha Turner You tested negative for COVID and Influenza. If you were tested because you were having symptoms, please monitor these symptoms and for any worrisome symptoms, please call your primary care provider or schedule a visit with [facility]. Brittani Polanco APRN.DANAE documented in this encounter [facility] 09-14-2022 Note HNO ID: [id number] Author: Nilda Orosco LPN Service: ? Author Type: ? Type: Progress Notes Filed: 09/14/2022 8:39 PM Note Text: Patient presented with labored breathing oxygen 94% level, pulse 88. Albuterol txt administered, patient tolerated well, oxygen reading 95%, pulse 96. Nildayadira Orosco LPN [facility] 09-14-2022 Influenza virus A and B RNA and SARS-CoV-2 (COVID-19) N gene panel PADMINI+probe (Resp) COVID 19 RESULT: SARS-CoV-2 (Agent of COVID-19) Not Detected by RT-PCR or equivalent method. gregory [id number] (LORRI)_EUA This test was developed and its performance characteristics determined by [facility]'s [facility] [place]. This test has been authorized by FDA under an Emergency Use Authorization (EUA). This test has been validated in accordance with the FDA's Guidance Document Policy for Diagnostics Testing in Laboratories Certified to Perform High Complexity Testing under CLIA prior to Emergency use Authorization for Coronavirus Disease 2019 during the Public Health Emergency issued on November 10, 2019. Test performed by [facility], [facility] [place], [address] [place] [address]. INFLUENZA A PCR: Negative for Influenza A by RT-PCR INFLUENZA B PCR: Negative for Influenza B by RT-PCR [facility] documented as of this encounter (statuses as of 12/02/2021) [facility] History of Past illness Narrative* Problem Noted Date Resolved Date Hiatal hernia 07/05/2018 08/11/2018 Overview: Added automatically from request for surgery [id number] Obesity 05/19/2018 Chronic hepatitis, unspecified 0 11/24/2017 Overview: Noted that negative for chronic active Hep B or C. Fatty liver noted on US documented as of this encounter (statuses as of 12/21/2021) [facility] History of Past illness Narrative* Problem Noted Date Resolved Date Hiatal hernia 07/05/2018 08/11/2018 Overview: Added automatically from request for surgery [id number] Obesity 05/19/2018 Chronic hepatitis, unspecified 0 11/24/2017 Overview: Noted that negative for chronic active Hep B or C. Fatty liver noted on US documented as of this encounter (statuses as of 03/18/2022) [facility] History of Past illness Narrative* Problem Noted Date Resolved Date Hiatal hernia 07/05/2018 08/11/2018 Overview: Added automatically from request for surgery [id number] Obesity 05/19/2018 Chronic hepatitis, unspecified 0 11/24/2017 Overview: Noted that negative for chronic active Hep B or C. Fatty liver noted on US documented as of this encounter (statuses as of 04/23/2022) [facility] History of Past illness Narrative* Problem Noted Date Resolved Date Hiatal hernia 07/05/2018 08/11/2018 Overview: Added automatically from request for surgery [id number] Obesity 05/19/2018 Chronic hepatitis, unspecified 0 11/24/2017 Overview: Noted that negative for chronic active Hep B or C. Fatty liver noted on US documented as of this encounter (statuses as of 04/23/2022) [facility] History of Past illness Narrative* Problem Noted Date Resolved Date Hiatal hernia 07/05/2018 08/11/2018 Overview: Added automatically from request for surgery [id number] Obesity 05/19/2018 Chronic hepatitis, unspecified 0 11/24/2017 Overview: Noted that negative for chronic active Hep B or C. Fatty liver noted on US documented as of this encounter (statuses as of 05/19/2022) [facility] History of Past illness Narrative* Problem Noted Date Resolved Date Hiatal hernia 07/05/2018 08/11/2018 Overview: Added automatically from request for surgery [id number] Obesity 05/19/2018 Chronic hepatitis, unspecified 0 11/24/2017 Overview: Noted that negative for chronic active Hep B or C. Fatty liver noted on US documented as of this encounter (statuses as of 05/25/2022) [facility] History of Past illness Narrative* Problem Noted Date Resolved Date Hiatal hernia 07/05/2018 08/11/2018 Overview: Added automatically from request for surgery [id number] Obesity 05/19/2018 Chronic hepatitis, unspecified 0 11/24/2017 Overview: Noted that negative for chronic active Hep B or C. Fatty liver noted on US documented as of this encounter (statuses as of 05/26/2022) [facility] History of Past illness Narrative* Problem Noted Date Resolved Date Hiatal hernia 07/05/2018 08/11/2018 Overview: Added automatically from request for surgery [id number] Obesity 05/19/2018 Chronic hepatitis, unspecified 0 11/24/2017 Overview: Noted that negative for chronic active Hep B or C. Fatty liver noted on US documented as of this encounter (statuses as of 06/18/2022) [facility] of Past illness Narrative* Problem Noted Date Resolved Date Hiatal hernia 07/05/2018 08/11/2018 Overview: Added automatically from request for surgery [id number] Obesity 05/19/2018 Chronic hepatitis, unspecified 0 11/24/2017 Overview: Noted that negative for chronic active Hep B or C. Fatty liver noted on US documented as of this encounter (statuses as of 07/07/2022) [facility] of Past illness Narrative* Problem Noted Date Resolved Date Hiatal hernia 07/05/2018 08/11/2018 Overview: Added automatically from request for surgery [id number] Obesity 05/19/2018 Chronic hepatitis, unspecified 0 11/24/2017 Overview: Noted that negative for chronic active Hep B or C. Fatty liver noted on US documented as of this encounter (statuses as of 09/16/2022) [facility] of Past [facility] Narrative* Problem Noted Date Resolved Date Hiatal hernia 07/05/2018 08/11/2018 Overview: Added automatically from request for surgery [id number] Obesity 05/19/2018 Chronic hepatitis, unspecified 0 11/24/2017 Overview: Noted that negative for chronic active Hep B or C. Fatty liver noted on US documented as of this encounter (statuses as of 09/16/2022) [facility] of Past [facility] Narrative* Problem Noted Date Resolved Date Hiatal hernia 07/05/2018 08/11/2018 Overview: Added automatically from request for surgery [id number] Obesity 05/19/2018 Chronic hepatitis, unspecified 0 11/24/2017 Overview: Noted that negative for chronic active Hep B or C. Fatty liver noted on US documented as of this encounter (statuses as of 10/21/2022) [facility] of Past [facility] Narrative* Problem Noted Date Resolved Date Hiatal hernia 07/05/2018 08/11/2018 Overview: Added automatically from request for surgery [id number] Obesity 05/19/2018 Chronic hepatitis, unspecified 0 11/24/2017 Overview: Noted that negative for chronic active Hep B or C. Fatty liver noted on US documented as of this encounter (statuses as of 11/26/2022) [facility] of Past [facility] Narrative* Problem Noted Date Resolved Date Hiatal hernia 07/05/2018 08/11/2018 Overview: Added automatically from request for surgery [id number] Obesity 05/19/2018 Chronic hepatitis, unspecified 0 11/24/2017 Overview: Noted that negative for chronic active Hep B or C. Fatty liver noted on US documented as of this encounter (statuses as of 12/20/2022) [facility] Narrative* Problem Noted Date Resolved Date Hiatal hernia 07/05/2018 08/11/2018 Overview: Added automatically from request for surgery [id number] Obesity 05/19/2018 Chronic hepatitis, unspecified 0 11/24/2017 Overview: Noted that negative for chronic active Hep B or C. Fatty liver noted on US documented as of this encounter (statuses as of 01/18/2023) [facility] Narrative* Problem Noted Date Resolved Date Hiatal hernia 07/05/2018 08/11/2018 Overview: Added automatically from request for surgery [id number] Obesity 05/19/2018 Chronic hepatitis, unspecified 0 11/24/2017 Overview: Noted that negative for chronic active Hep B or C. Fatty liver noted on US documented as of this encounter (statuses as of 01/19/2023) [facility] of [facility] Narrative* Problem Noted Date Diagnosed Date Resolved Date Hiatal hernia 07/05/2018 08/11/2018 Overview: Added automatically from request for surgery [id number] Obesity 05/19/2018 Chronic hepatitis, unspecified 11/24/2017 Overview: Noted that negative for chronic active Hep B or C. Fatty liver noted on US documented as of this encounter (statuses as of 04/12/2023) [facility] of [facility] Narrative* Problem Noted Date Diagnosed Date Resolved Date Hiatal hernia 07/05/2018 08/11/2018 Overview: Added automatically from request for surgery [id number] Obesity 05/19/2018 Chronic hepatitis, unspecified 11/24/2017 Overview: Noted that negative for chronic active Hep B or C. Fatty liver noted on US documented as of this encounter (statuses as of 04/12/2023) [facility] of [facility] Narrative* Problem Noted Date Diagnosed Date Resolved Date Hiatal hernia 07/05/2018 08/11/2018 Overview: Added automatically from request for surgery [id number] Obesity 05/19/2018 Chronic hepatitis, unspecified 11/24/2017 Overview: Noted that negative for chronic active Hep B or C. Fatty liver noted on US documented as of this encounter (statuses as of 04/15/2023) [facility] Narrative* Problem Noted Date Diagnosed Date Resolved Date Hiatal hernia 07/05/2018 08/11/2018 Overview: Added automatically from request for surgery [id number] Obesity 05/19/2018 Chronic hepatitis, unspecified 11/24/2017 Overview: Noted that negative for chronic active Hep B or C. Fatty liver noted on US documented as of this encounter (statuses as of 06/11/2023) [facility] Narrative* Problem Noted Date Diagnosed Date Resolved Date Hiatal hernia 07/05/2018 08/11/2018 Overview: Added automatically from request for surgery [id number] Obesity 05/19/2018 Chronic hepatitis, unspecified 11/24/2017 Overview: Noted that negative for chronic active Hep B or C. Fatty liver noted on US documented as of this encounter (statuses as of 06/16/2023) [facility] Narrative* Problem Noted Date Diagnosed Date Resolved Date Hiatal hernia 07/05/2018 08/11/2018 Overview: Added automatically from request for surgery [id number] Obesity 05/19/2018 Chronic hepatitis, unspecified 11/24/2017 Overview: Noted that negative for chronic active Hep B or C. Fatty liver noted on US documented as of this encounter (statuses as of 06/17/2023) [facility] Narrative* Problem Noted Date Diagnosed Date Resolved Date Hiatal hernia 07/05/2018 08/11/2018 Overview: Added automatically from request for surgery [id number] Obesity 05/19/2018 Chronic hepatitis, unspecified 11/24/2017 Overview: Noted that negative for chronic active Hep B or C. Fatty liver noted on US documented as of this encounter (statuses as of 06/24/2023) [facility] Narrative* Problem Noted Date Diagnosed Date Resolved Date Hiatal hernia 07/05/2018 08/11/2018 Overview: Added automatically from request for surgery [id number] Obesity 05/19/2018 Chronic hepatitis, unspecified 11/24/2017 Overview: Noted that negative for chronic active Hep B or C. Fatty liver noted on US documented as of this encounter (statuses as of 07/17/2023) [facility] Narrative* Problem Noted Date Diagnosed Date Resolved Date Hiatal hernia 07/05/2018 08/11/2018 Overview: Added automatically from request for surgery [id number] Obesity 05/19/2018 Chronic hepatitis, unspecified 11/24/2017 Overview: Noted that negative for chronic active Hep B or C. Fatty liver noted on US documented as of this encounter (statuses as of 08/03/2023) [facility] Narrative* Problem Noted Date Diagnosed Date Resolved Date Hiatal hernia 07/05/2018 08/11/2018 Overview: Added automatically from request for surgery [id number] Obesity 05/19/2018 Chronic hepatitis, unspecified 11/24/2017 Overview: Noted that negative for chronic active Hep B or C. Fatty liver noted on US documented as of this encounter (statuses as of 08/03/2023) [facility] [facility] of Past illness Narrative* Problem Noted Date Diagnosed Date Resolved Date Hiatal hernia 07/05/2018 08/11/2018 Overview: Added automatically from request for surgery [id number] Obesity 05/19/2018 Chronic hepatitis, unspecified 11/24/2017 Overview: Noted that negative for chronic active Hep B or C. Fatty liver noted on US documented as of this encounter (statuses as of 08/04/2023) [facility]10[facility] History of Past illness Narrative* Problem Noted Date Diagnosed Date Resolved Date Hiatal hernia 07/05/2018 08/11/2018 Overview: Added automatically from request for surgery [id number] Obesity 05/19/2018 Chronic hepatitis, unspecified 11/24/2017 Overview: Noted that negative for chronic active Hep B or C. Fatty liver noted on US documented as of this encounter (statuses as of 08/14/2023) [facility] note* Diagnosis Meniere's disease, unspecified laterality Heartburn Mild intermittent asthma without complication Unspecified asthma [facility]* Diagnosis Nasal drainage Other diseases of nasal cavity and sinuses [facility]* Diagnosis Gastroesophageal reflux disease without esophagitis- Primary Esophageal reflux Meniere's disease, unspecified laterality Encounter for immunization Need for other specified prophylactic vaccination against single bacterial disease Need for shingles vaccine Need for prophylactic vaccination and inoculation against other viral diseases COVID-19 virus infection [facility]* Diagnosis Visit for screening mammogram- Primary Other screening mammogram [facility]* Diagnosis Encounter for screening mammogram for breast cancer- Primary [facility]* Diagnosis Mild intermittent asthma without complication Unspecified asthma documented in this encounter [facility] note* Diagnosis Encounter for screening mammogram for breast cancer [facility]* Diagnosis Hemorrhoid prolapse- Primary Unspecified hemorrhoids with other complication Perianal irritation Pruritus ani [facility]* Diagnosis Hemorrhoid prolapse- Primary Unspecified hemorrhoids with other complication [facility]* Diagnosis LRTI (lower respiratory tract infection)- Primary Other diseases of respiratory system, not elsewhere classified Fever, unspecified fever cause Mild intermittent asthma without complication Unspecified asthma [facility] this encounter [facility]* Diagnosis Vitamin D deficiency- Primary Unspecified vitamin D deficiency Osteoporosis, unspecified Encounter for long-term current use of medication Iron deficiency anemia, unspecified iron deficiency anemia type documented [facility] this encounter [facility]* Diagnosis Acute non-recurrent frontal sinusitis- Primary Bleeding hemorrhoids Unspecified hemorrhoids with other complication Other iron deficiency anemia Vitamin D deficiency Unspecified vitamin D deficiency Gastroesophageal reflux disease without esophagitis Esophageal reflux Chronic fatigue Other malaise and fatigue documented [facility]* Diagnosis Hemorrhoid prolapse- Primary Unspecified hemorrhoids with other complication Bleeding hemorrhoid Unspecified hemorrhoids with other complication documented [facility]* Diagnosis Meniere's disease, unspecified laterality documented in this encounter [facility]* Diagnosis Encounter for screening for diabetes mellitus- Primary Screening for diabetes mellitus documented [facility]* Diagnosis Heartburn documented [facility] this encounter [facility]* Diagnosis Other iron deficiency anemia- Primary Gastroesophageal reflux disease without esophagitis Esophageal reflux Leg cramp Cramp of limb Dense breasts Inconclusive mammogram Vitamin D deficiency Unspecified vitamin D deficiency Breast cancer screening by mammogram Encounter for long-term current use of medication Bleeding hemorrhoids Unspecified hemorrhoids with other complication Malignant neoplasm of upper-inner quadrant of right female breast, unspecified estrogen receptor status (HCC) documented [facility]* Diagnosis Nonrheumatic aortic valve stenosis- Primary Aortic valve disorders Nonrheumatic aortic insufficiency with aortic stenosis [facility]* Diagnosis Breast cancer screening by mammogram Dense breasts Inconclusive mammogram [facility]* Diagnosis Viral illness- Primary Unspecified viral infection, in conditions classified elsewhere and of unspecified site documented in this encounter [facility] note* Diagnosis Aortic valve stenosis, etiology of cardiac valve disease unspecified- Primary History of cardiovascular stress test Other specified personal history presenting hazards to health History of echocardiogram Other specified personal history presenting hazards to health Non-smoker Other specified conditions influencing health status Nonrheumatic aortic valve stenosis Aortic valve disorders Nonrheumatic aortic insufficiency with aortic stenosis documented in this encounter [facility] for referral (narrative)* Diagnostic Procedure Only (Routine) - Pending Review Specialty Diagnoses / Procedures Referred By Lisa elizalde Referred To Contact [facility] Diagnoses Visit for screening mammogram Procedures BOBBI SCREENING SCREENING MAMMOGRAPHY BI 2-VIEW BREAST INC Renate Valladares MD [address] [place] [address] [facility] [address] [place] [address] Referral ID Status Reason Start Date Expiration Date Visits Requested Visits Authorized [id number] Pending Review Auto-Generat ed Referral 04/23/2022 05/23/2023 1 1 [facility] for referral (narrative)* Diagnostic Procedure Only (Routine) - Pending Review Specialty Diagnoses / Procedures Referred By Contac t Referred To Contact [facility] Diagnoses Encounter for screening mammogram for breast cancer Procedures BOBBI SCREENING W MADI SCREENING DIGITAL BREAST TOMOSYNTHESIS BI SCREENING MAMMOGRAPHY BI 2-VIEW BREAST INC CAD [facility], MEMBER OF TECHNICAL 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.FILLER 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 [address] [place] [address] [facility] [address] [place] [address] Referral ID Status Reason Start Date Expiration Date Visits Requested Visits Authorized [id number] Pending Review Auto-Generat ed Referral 04/23/2022 05/23/2023 1 1 [facility] for referral (narrative)* Diagnostic Procedure Only (Routine) - Closed Specialty Diagnoses / Procedures Referred By Contac t Referred To Contact [facility] Diagnoses Encounter for screening mammogram for breast cancer Procedures BOBBI SCREENING W MADI SCREENING DIGITAL BREAST TOMOSYNTHESIS BI SCREENING MAMMOGRAPHY BI 2-VIEW BREAST INC [facility] RobbPriscilla, MEMBER OF TECHNICAL STAFF.FILLER SHREDDER MACHINE [address] [place] [address] [facility] [address] [place] [address] Referral ID Status Reason Start Date Expiration Date V isits Requested Visits Authorized [id number] Closed Auto-Generate d Referral 04/23/2022 05/23/2023 1 1 [facility] for referral (narrative)* Diagnostic Procedure Only (Routine) - Authorized Specialty Diagnoses / Procedures Referred By Contac t Referred To Contact [facility] Diagnoses Breast cancer screening by mammogram Dense breasts Procedures BOBBI SCREENING W MADI SCREENING DIGITAL BREAST TOMOSYNTHESIS BI SCREENING MAMMOGRAPHY BI 2-VIEW BREAST INC Renate Valladares MD [address] [place] [address] [facility] [address] [facility] [place] [address] Referral ID Status Reason Start Date Expiration Date Visits Requested Visits Authorized [id number] Authorized Auto-Generat ed Referral 05/23/2023 06/21/2024 1 1 [facility] for referral (narrative)* Diagnostic Procedure Only (Routine) - Closed Specialty Diagnoses / Procedures Referred By Contanastasia elizalde Referred To Contact [facility] Diagnoses Breast cancer screening by mammogram Dense breasts Procedures BOBBI SCREENING W MADI SCREENING DIGITAL BREAST TOMOSYNTHESIS BI SCREENING MAMMOGRAPHY BI 2-VIEW BREAST INC Renate Valladares MD [address] [place] [address] [facility] [address] [place] [address] Referral ID Status Reason Start Date Expiration Date V isits Requested Visits Authorized [id number] Closed Auto-Generate d Referral 05/23/2023 06/21/2024 1 1 [facility] for referral (narrative)* Outpatient Procedure (Routine) - Pending Review Specialty Diagnoses / Procedures Referred By Lisa elizalde [facility] Diagnoses Aortic valve stenosis, etiology of cardiac valve disease unspecified Procedures ECG COMPLETE ECG ROUTINE ECG W/LEAST 12 LDS W/I&R Trell Marie DO [address] [place] [address] [facility] [address] [place] [address] Referral ID Status Reason Start Date Expiration Date Visits Requested Visits Authorized [id number] Pending Review Auto-Generat ed Referral 3 08/09/2024 [facility] Diagnostic Procedure Only (Routine) - Closed Specialty Diagnoses / Procedures Referred By Lisa elizalde Referred To Contact [facility] Diagnoses Encounter for screening mammogram for breast cancer Procedures BOBBI SCREENING W MADI SCREENING DIGITAL BREAST TOMOSYNTHESIS BI SCREENING MAMMOGRAPHY BI 2-VIEW BREAST INC Priscilla Weber APRN.CNS [address] [place] [address] [facility] [address] [place] [address] Referral ID Status Reason Start Date Expiration Date V isits Requested Visits Authorized [id number] Closed Auto-Generate d Referral 04/23/2022 05/23/2023 1 1 [facility] Diagnostic Procedure Only (Routine) - Closed Specialty Diagnoses / Procedures Referred By Lisa elizalde Referred To Contact [facility] Diagnoses Breast cancer screening by mammogram Dense breasts Procedures BOBBI SCREENING W MADI SCREENING DIGITAL BREAST TOMOSYNTHESIS BI SCREENING MAMMOGRAPHY BI 2-VIEW BREAST INC Renate Valladares MD [address] [place] [address] [facility] [address] [place] [address] Referral ID Status Reason Start Date Expiration Date V isits Requested Visits Authorized [id number] Closed Auto-Generate d Referral 05/23/2023 06/21/2024 1 1 [facility] Summary Purpose Family History No Family History Records FoundNo Family History Records FoundNo Family History Records FoundNo Family History Records Found Advance Directives No Advanced Directives Records FoundDocuments on File Type Date Recorded 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 Advance Directive(s) 04/11/2019 12:55 PM Advance Directive(s) 08/10/2018 9:32 AM Medications Administered Section Inactive Administered Medications - up to 3 most recent administrations Medication Order MAR Action Action Date Dose Rate Site albuterol 2.5 mg /3 mL (0.083 %) 2.5 mg (PROVENTIL) 2.5 mg, INHALATION, ONCE, 1 dose, On Tue09/14/22 at 1830 Given 09/14/2022 7:24 PM EST 2.5 mg Health Concerns Infection Onset Date Last Indicated Resolved Time COVID-19 Rule-Out 09/14/2022 09/14/2022 09/15/2022 9:44 AM EST Infection Onset Date Last Indicated Resolved Time COVID-19 Rule-Out 08/03/2023 08/03/2023 Infection Onset Date Last Indicated Resolved Time COVID-19 Rule-Out 08/03/2023 08/03/2023 08/03/2023 7:25 PM EST Reason for Referral Specialty Diagnoses / Procedures Referred By Contac t Referred To Contact Cardiology Diagnoses Nonrheumatic aortic valve stenosis Nonrheumatic aortic insufficiency with aortic stenosis Procedures CONSULT TO CARDIOLOGY OFFICE/OUTPATIENT [facility] 60-74 MINUTES Karolina Bryant APRN.ENROLLED NURSE [address] [place] [address] Referral ID Status Reason Start Date Expiration Date Visits Requested Visits Authorized [id number] Authorized PCP Requested Referral 06/20/2023 06/19/2024 1 1 Additional Source Comments INFORMATION SOURCE (unrecogn ized section and content) DATE CREATED AUTHOR AUTHOR'S ORGANIZ ATION 12/25/2022 [facility] DATE CREATED AUTHOR AUTHOR'S ORGANIZ ATION 08/05/2023 [facility] DATE CREATED AUTHOR AUTHOR'S ORGANIZ ATION 08/16/2023 [facility] Source Comments (unrecognize d section and content) In the event this informatio n is protected by the Federal Confidentiality of Alcohol and Drug Abuse Patient Records regulations: The Federal rules restrict any use of the information to criminally investigate or prosecute any alcohol or drug abuse patient.[facility] the event this information is protected by the Federal Confidentiality of Alcohol and Drug Abuse Patient Records regulations: The Federal rules restrict any use of the information to criminally investigate or prosecute any alcohol or drug abuse patient.[facility] the event this information is protected by the Federal Confidentiality of Alcohol and Drug Abuse Patient Records regulations: The Federal rules restrict any use of the information to criminally investigate or prosecute any alcohol or drug abuse patient.[facility] the event this information is protected by the Federal Confidentiality of Alcohol and Drug Abuse Patient Records regulations: The Federal rules restrict any use of the information to criminally investigate or prosecute any alcohol or drug abuse patient.[facility] the event this information is protected by the Federal Confidentiality of Alcohol and Drug Abuse Patient Records regulations: The Federal rules restrict any use of the information to criminally investigate or prosecute any alcohol or drug abuse patient.[facility] the event this information is protected by the Federal Confidentiality of Alcohol and Drug Abuse Patient Records regulations: The Federal rules restrict any use of the information to criminally investigate or prosecute any alcohol or drug abuse patient.[facility] the event this information is protected by the Federal Confidentiality of Alcohol and Drug Abuse Patient Records regulations: The Federal rules restrict any use of the information to criminally investigate or prosecute any alcohol or drug abuse patient.[facility] the event this information is protected by the Federal Confidentiality of Alcohol and Drug Abuse Patient Records regulations: The Federal rules restrict any use of the information to criminally investigate or prosecute any alcohol or drug abuse patient.[facility] the event this information is protected by the Federal Confidentiality of Alcohol and Drug Abuse Patient Records regulations: The Federal rules restrict any use of the information to criminally investigate or prosecute any alcohol or drug abuse patient.[facility] the event this information is protected by the Federal Confidentiality of Alcohol and Drug Abuse Patient Records regulations: The Federal rules restrict any use of the information to criminally investigate or prosecute any alcohol or drug abuse patient.[facility] the event this information is protected by the Federal Confidentiality of Alcohol and Drug Abuse Patient Records regulations: The Federal rules restrict any use of the information to criminally investigate or prosecute any alcohol or drug abuse patient.[facility] Hospital[facility] the event this information is protected by the Federal Confidentiality of Alcohol and Drug Abuse Patient Records regulations: The Federal rules restrict any use of the information to criminally investigate or prosecute any alcohol or drug abuse patient.[facility] Hospital[facility] the event this information is protected by the Federal Confidentiality of Alcohol and Drug Abuse Patient Records regulations: The Federal rules restrict any use of the information to criminally investigate or prosecute any alcohol or drug abuse patient.[facility] the event this information is protected by the Federal Confidentiality of Alcohol and Drug Abuse Patient Records regulations: The Federal rules restrict any use of the information to criminally investigate or prosecute any alcohol or drug abuse patient.[facility] the event this information is protected by the Federal Confidentiality of Alcohol and Drug Abuse Patient Records regulations: The Federal rules restrict any use of the information to criminally investigate or prosecute any alcohol or drug abuse patient.[facility] the event this information is protected by the Federal Confidentiality of Alcohol and Drug Abuse Patient Records regulations: The Federal rules restrict any use of the information to criminally investigate or prosecute any alcohol or drug abuse patient.[facility] the event this information is protected by the Federal Confidentiality of Alcohol and Drug Abuse Patient Records regulations: The Federal rules restrict any use of the information to criminally investigate or prosecute any alcohol or drug abuse patient.[facility] the event this information is protected by the Federal Confidentiality of Alcohol and Drug Abuse Patient Records regulations: The Federal rules restrict any use of the information to criminally investigate or prosecute any alcohol or drug abuse patient.[facility] the event this information is protected by the Federal Confidentiality of Alcohol and Drug Abuse Patient Records regulations: The Federal rules restrict any use of the information to criminally investigate or prosecute any alcohol or drug abuse patient.[facility] the event this information is protected by the Federal Confidentiality of Alcohol and Drug Abuse Patient Records regulations: The Federal rules restrict any use of the information to criminally investigate or prosecute any alcohol or drug abuse patient.[facility] Hospital[facility] the event this information is protected by the Federal Confidentiality of Alcohol and Drug Abuse Patient Records regulations: The Federal rules restrict any use of the information to criminally investigate or prosecute any alcohol or drug abuse patient.[facility] the event this information is protected by the Federal Confidentiality of Alcohol and Drug Abuse Patient Records regulations: The Federal rules restrict any use of the information to criminally investigate or prosecute any alcohol or drug abuse patient.[facility] HospitalIn the event this information is protected by the Federal Confidentiality of Alcohol and Drug Abuse Patient Records regulations: The Federal rules restrict any use of the information to criminally investigate or prosecute any alcohol or drug abuse patient.[facility] HospitalIn the event this information is protected by the Federal Confidentiality of Alcohol and Drug Abuse Patient Records regulations: The Federal rules restrict any use of the information to criminally investigate or prosecute any alcohol or drug abuse patient.[facility] the event this information is protected by the Federal Confidentiality of Alcohol and Drug Abuse Patient Records regulations: The Federal rules restrict any use of the information to criminally investigate or prosecute any alcohol or drug abuse patient.[facility] HospitalIn the event this information is protected by the Federal Confidentiality of Alcohol and Drug Abuse Patient Records regulations: The Federal rules restrict any use of the information to criminally investigate or prosecute any alcohol or drug abuse patient.[facility] HospitalIn the event this information is protected by the Federal Confidentiality of Alcohol and Drug Abuse Patient Records regulations: The Federal rules restrict any use of the information to criminally investigate or prosecute any alcohol or drug abuse patient.[facility] HospitalIn the event this information is protected by the Federal Confidentiality of Alcohol and Drug Abuse Patient Records regulations: The Federal rules restrict any use of the information to criminally investigate or prosecute any alcohol or drug abuse patient.[facility] HospitalIn the event this information is protected by the Federal Confidentiality of Alcohol and Drug Abuse Patient Records regulations: The Federal rules restrict any use of the information to criminally investigate or prosecute any alcohol or drug abuse patient.[facility] Reason for Visit (unrecogniz ed section and content) Reason Onset Date Comments Refill Request 12/21/2021 Reason Comments F/U 6 Month Reason Comments mammogram needs scheduled Reason Onset Date Comments Refill Request 05/19/2022 Reason Comments New Patient Fecal incontinence Reason Comments Established Patient Banding hemorrhoids Reason Comments Chest Congestion cough, headache and bodyaches x 10 day Reason Comments Results Reason Comments Patient Question Reason Comments F/U 6 months Labs prior Reason Comments Established Patient Hemorrhoids/ bleedin g Reason Onset Date Comments Refill Request 01/19/2023 Reason Comments Refill Request Reason Onset Date Comments F/U 6 months Breast Problem 05/23/2023 Mammogram at [facility] Reason Comments Results Reason Comments Patient Update Medication Request Reason Comments Cough Congestion, sore thr oat, SHAW, sinus pressure, ears poppingx 4 days Reason Comments CARD New Patient Consult Aortic valve st enosis. Specialty Diagnoses / Procedures Referred By Lisa elizalde Referred To Contact Cardiology Diagnoses Nonrheumatic aortic valve stenosis Nonrheumatic aortic insufficiency with aortic stenosis Procedures CONSULT TO CARDIOLOGY OFFICE/OUTPATIENT NEW HIGH MDM 60-74 MINUTES Karolina Bryant APRN.ENROLLED NURSE [address] [place] [address] Referral ID Status Reason Start Date Expiration Date V isits Requested Visits Authorized [id number] Closed PCP Requested Referral 06/20/2023 06/19/2024 1 1 Care Teams (unrecognized sec tion and content) Freight Sorter Relationship Specialty Start Date End Date Renate Waldron MD [address] [place], [place] [id number] PCP - General 07/03/02 Gentry Mendiola Physician Orthopedics 07/28/18 Freight Sorter Relationship Specialty Start Date End Date Renate Waldron MD [address] [place], [place] [id number] PCP - General 07/03/02 Gentry Mendiola Physician Orthopedics 07/28/18 Freight Sorter Relationship Specialty Start Date End Date Renate Waldron MD [address] [facility] [place] [address] PCP - General 07/03/02 Gentry Mendiola Physician Orthopedics 07/28/18 Freight Sorter Relationship Specialty Start Date End Date Renate Waldron MD [address] [place] [address] PCP - General 07/03/02 Gentry Mendiola Physician Orthopedics 07/28/18 Freight Sorter Relationship Specialty Start Date End Date Renate Waldron MD [address] [place] [address] PCP - General 07/03/02 Gentry Mendiola Physician Orthopedics 07/28/18 Freight Sorter Relationship Specialty Start Date End Date Renate Waldron MD [address] [place] [address] PCP - General 07/03/02 Gentry Mendiola Physician Orthopedics 07/28/18 Freight Sorter Relationship Specialty Start Date End Date Renate Waldron MD [address] [place] [address] PCP - General 07/03/02 Gentry Mendiola Physician Orthopedics 07/28/18 Freight Sorter Relationship Specialty Start Date End Date Renate Waldron MD [address] [facility] [place] [address] PCP - General 07/03/02 Gentry Mendiola [address] [facility] [place] [address] Physician Orthopedics 07/28/18 Freight Sorter Relationship Specialty Start Date End Date Renate Waldron MD [address] [facility] [place] [address] PCP - General 07/03/02 Gentry Mendiola [address] [place] [address], [place] [address] Physician Orthopedics 07/28/18 Freight Sorter Relationship Specialty Start Date End Date Renate Waldron MD [address] [facility] [place] [address] PCP - General 07/03/02 Gentry Mendiola [address] [place] [address], [place] [address] Physician Orthopedics 07/28/18 Freight Sorter Relationship Specialty Start Date End Date Renate Waldron MD [address] [facility] [place] [address] PCP - General 07/03/02 Gentry Mendiola [facility] [place] [address] Physician Orthopedics 07/28/18 Freight Sorter Relationship Specialty Start Date End Date Renate Waldron MD [address] [facility] [place] [address] PCP - General 07/03/02 Gentry Mendiola [address] [place] [address], [place] [address] Physician Orthopedics 07/28/18 Freight Sorter Relationship Specialty Start Date End Date Renate Waldron MD [address] [facility] [place] [address] PCP - General 07/03/02 Gentry Mendiola [address] [facility] [address] Physician Orthopedics 07/28/18 Freight Sorter Relationship Specialty Start Date End Date Renate Waldron MD [address] [facility] [address] PCP - General 07/03/02 Gentry Mendiola [address] [facility] [address] Physician Orthopedics 07/28/18 Freight Sorter Relationship Specialty Start Date End Date Renate Waldron MD [address] [facility] [address] PCP - General 07/03/02 Gentry Mendiola [address] [facility] [place] [address] Physician Orthopedics 07/28/18 Freight Sorter Relationship Specialty Start Date End Date Renate Waldron MD [address] [facility] [place] [address] PCP - General 07/03/02 Gentry Mendiola [address] [facility] [place] [address] Physician Orthopedics 07/28/18 Freight Sorter Relationship Specialty Start Date End Date Renate Waldron MD [address] [place], [place] [id number] PCP - General 07/03/02 Gentry Mendiola [address] [place], [place] [address] Physician Orthopedics 07/28/18 Freight Sorter Relationship Specialty Start Date End Date Renate Waldron MD [address] [place], [place] [address]381 PCP - General 07/03/02 Gentry Mendiola [address] [place] [address] Physician Orthopedics 07/28/18 Freight Sorter Relationship Specialty Start Date End Date Renate Walrdon MD [address] [place], [place] [address] PCP - General 07/03/02 Gentry Mendiola [address] [place] [address] Physician Orthopedics 07/28/18 Freight Sorter Relationship Specialty Start Date End Date Renate Waldron MD [address] [place] [address] PCP - General 07/03/02 Gentry Mendiola [address] [place], [place] [address] Physician Orthopedics 07/28/18 Freight Sorter Relationship Specialty Start Date End Date Renate Waldron MD [address] [place], [place] [address] PCP - General 07/03/02 Gentry Mendiola [address] [place] [address] Physician Orthopedics 07/28/18 Freight Sorter Relationship Specialty Start Date End Date Renate Waldron MD [address] [place] [address] PCP - General 07/03/02 Gentry Mendiola [address] [place] [address] Physician Orthopedics 07/28/18 Freight Sorter Relationship Specialty Start Date End Date Renate Waldron MD [address] [place] [address] PCP - General 07/03/02 Gentry Mendiola [address] [place] [address] Physician Orthopedics 07/28/18 FOR RECORDS PERTAINING TO PATIENTS WHO ARE OR HAVE BEEN ENROLLED IN A CHEMICAL DEPENDENCY/SUBSTANCEABUSE PROGRAM, SOME INFORMATION MAY BE OMITTED. This clinical summary was aggregated from multiple sources. Caution should be exercised in using it in the provision of clinical care. This summary normalizes information from multiple sources, and as a consequence, information in this document may materially change the coding, format and clinical context of patient data. In addition, data may be omitted in some cases. CLINICAL DECISIONS SHOULD BE BASED ON THE PRIMARY CLINICAL RECORDS. [facility]. provides no warranty or guarantee of the accuracy or completeness of information in this document.
[2023-09-15] MEDS: Lactated Ringers 1,000 ML 15 ML IV (06:25)
--- NOTE | 2023-09-15 06:39 | PCM.HP.BLA ---
History and Physical Date of Admission: 09/15/23 Visit Reasons: BLEEDING HEMORRHOIDS/LOSING BLOOD/ANEMIC Chief Complaint: Bleeding hemorrhoids, losing blood, anemic Allergies adhesive tape Allergy (Mild, Verified 06/17/23 13:53) RashInfluenza Virus Vaccines Allergy (Mild, Verified 06/17/23 13:53) GI upsetlatex Allergy (Mild, Verified 06/17/23 13:53) itchingbee sting Allergy (Mild, Uncoded 06/17/23 13:53) Swelling Medications Saccharomyces boulardii 250 mg capsule (Daily Probiotic (S. boulardii)) 250 mg PO DAILY 06/17/23 [History Confirmed 06/17/23] albuterol sulfate 90 mcg/actuation aerosol inhaler 2 puff inhalation Q6H PRN 06/17/23 [History Confirmed 06/17/23] calcium carbonate 600 mg calcium (1,500 mg) tablet (Calcium) 600 mg PO DAILY 06/17/23 [History Confirmed 06/17/23] cholecalciferol (vitamin D3) 25 mcg (1,000 unit) capsule 25 mcg PO DAILY 06/17/23 [History Confirmed 06/17/23] clobetasol 0.05 % topical cream 1 applic topical .prn 06/17/23 [History Confirmed 06/17/23] esomeprazole magnesium 20 mg capsule,delayed release 20 mg PO DAILY 06/17/23 [History Confirmed 06/17/23] famotidine 20 mg tablet (Pepcid) 20 mg PO DAILY 06/17/23 [History Confirmed 06/17/23] ferrous sulfate 325 mg (65 mg iron) tablet,delayed release 325 mg PO DAILY 06/17/23 [History Confirmed 06/17/23] fluticasone propionate 50 mcg/actuation nasal spray,suspension (Flonase Allergy Relief) 1 spray intranasal DAILY 06/17/23 [History Confirmed 06/17/23] ginkgo biloba 40 mg tablet 40 mg PO DAILY 06/17/23 [History Confirmed 06/17/23] meclizine 12.5 mg tablet 12.5 mg PO .prn PRN 06/17/23 [History Confirmed 06/17/23] multivitamin 1 tab PO DAILY 06/17/23 [History Confirmed 06/17/23] turmeric 400 mg capsule mg PO 06/17/23 [History Confirmed 06/17/23] PFSH Medical History (Updated 06/17/23 @ 14:07 by Sangeetha Antonio) Acid reflux Arthritis Asthma Breast cancer Cataract Heart murmur Surgical History (Updated 06/17/23 @ 14:07 by Sangeetha Antonio) H/O hernia repair History of cholecystectomy History of liver biopsy Status post right breast lumpectomy Social History (Updated 06/17/23 @ 14:07 by Sangeetha Antonio) Smoking Status: Never smoker HPI HPI HPI: 78-year-old female. She has been treated by Dr. Phil Caal at the [facility] with multiple hemorrhoidal banding's. The patient presents today still complaining of rectal bleeding and anemia. The patient is very tearful today. She has had ongoing problems with rectal bleeding and anemia. She feels fatigued. She does not feel herself she has no energy. Apparently at [facility] she had a laparoscopic repair for hiatal hernia with a laparoscopic Amarjit fundoplication which was performed April 12, 2019. She said she had a colonoscopy there in that time. Did have a polyp removed. She apparently at some point make comment of the rectal bleeding so then she states that she had rubber banding of hemorrhoids done twice. But she is still bleeding. She was told that a hemorrhoidectomy was very uncomfortable. She has been quite anxious about this. Patient reminds me that I assisted her with a laparoscopic cholecystectomy and liver biopsy demonstrating hepatitis B graft as of June through 2022 through the [facility] patient has a HBV surface antibody serum qualitative that is positive and the HBV surface antibody serum DARNELL and see that is 734 M IUs per milliliter. Her HBV surface antigen is negative. White blood cell count of 7.4 with a hemoglobin 11.9 hematocrit 38.3 platelet count 304,000. Total bilirubin was 0.2 with an ALP of 66 and AST of 30 and ALT of 17 with a BUN of 16 and creatinine 0.84. The patient states that because of her anemia she has been on chronic iron supplementation as well ROS General General: No weight change, appetite, fatigue, colon cancer or breast cancer HEENT HEENT: No difficulty swallowing, eye injury, eye surgery, swollen glands or hoarseness Endo Endocrine: No thyroid disease, diabetes mellitus, thyroid cancer, Hair loss, heat intolerance or cold intolerance Skin Skin: No rash or changing moles Breast Breast: No left breast lump, right breast lump, nipple discharge, breast pain, abnormal mammogram, abnormal US or breast enlargement Musc Musculoskeletal: Yes arthritis Cardio Cardiovascular: Yes murmur Psych Psychiatric: No depression, anxiety or hearing voices Resp Respiratory: No shortness of breath, No sleep apnea, No cough, No COPD, No asthma, No emphysema and No wheezing Gastro Gastrointestinal: Yes hemorrhoids Peter Hematologic: No blood thinners, No blood disorders, No bleeding, No anemia and No blood clots Exam Const General: cooperative and anxious Orientation: alert, awake and oriented x3 HENMT Head: normal to inspection Eyes General: appearance normal, both eyes and all related structures Neck Neck: normal visual inspection Chest Chest palpation & inspection: normal inspection of the chest Resp Effort & Inspection: normal respiratory effort Auscultation: clear to auscultation bilaterally Cardio Rate: regular rate Rhythm: regular rhythm Other: With nursing present throughout the entire exam anal inspection reveals on the left lateral side prolapsing anal rectal mucosa with prolapsing internal hemorrhoidal tissue. Decreased anal tone GI Palpation: soft and no hepatosplenomegaly Auscultation: normal bowel sounds Musc Cervical Spine: normal cervical lordosis Skin General: no rashes or lesions noted Neuro General: patient alert and patient awake Extrem General: no calf tenderness Psych Appearance: grossly normal Assessment and Plan Assessment and Plan (1) Internal bleeding hemorrhoids: Status: Acute Plan: Patient appears to have a degree of focal rectal prolapse with prolapsing internal hemorrhoidal tissue. Clearly this will not resolve with hemorrhoidal banding. I propose for her surgical hemorrhoidectomy and in great deal and I discussed technique benefit risk complications alternatives. She already has a degree of lack of anal tone and some incontinence. She has had an opportunity to ask and have questions answered. To facilitate this management because her previous colonoscopy dates back to 2019 I post doing a combined colonoscopy with possible polypectomy or biopsy in combination with her surgical hemorrhoidectomy. In the meantime but I strongly encouraged the patient to initiate taking a daily fiber supplement and she is aware that this will be recommended postoperatively as well. I appreciate the opportunity of assisting with her surgical care Copy: Dr. Audelia Knutson M.D., F.A.C.S The patient notes that she has been having troubles with incontinence. She is aware that this procedure will not improve that problem but as she has a degree of prolapse it may assist to some degree. She and family members have had an opportunity to ask and have questions answered. I reviewed her history and physical exam and there are no changes. Anish Knutson M.D., F.A.C.S.
--- NOTE | 2023-09-15 07:01 | DCINST_ITS ---
Discharge Instructions Diet Discharge Diet: Light diet - advance as tolerated Activity Discharge Activity: May Not Drive (No driving for 1 week please), May Shower and May Take a Tub Bath Lifting Restrictions: 10 pound weight lifting restriction Additional Activity Instructions:: You may utilize sitz bath's and warm soapy water for hygiene and comfort Dressing / Incision Additional Dressing/Incision Instructions:: I recommend the daily use of a fiber supplement. Use 30 cc or 1 ounce of mineral oil in juice or food daily for approximately 1 week I would avoid constipating foods. Prescription metronidazole is provided Follow Up Care Please Follow Up With: Anish Knutson MD When: Please contact [phone] for office follow-up in approximately 3 weeks Test Results: Test results from this visit will be discussed in further detail at your follow- up appointment, if applicable. Discharge Plan Admission Attending Provider: Anish Knutson Primary Care Provider: Audelia Waldron Discharge Orders/Prescriptions Prescriptions: No Action ferrous sulfate 325 mg (65 mg iron) tablet,delayed release (DR/EC) 325 mg PO DAILY famotidine [Pepcid] 20 mg tablet 20 mg PO .HS esomeprazole magnesium 20 mg capsule,delayed release(DR/EC) 20 mg PO DAILY albuterol sulfate 90 mcg/actuation HFA aerosol inhaler 2 puff inhalation Q6H PRN (Reason: shortness of breath or wheezing) meclizine 12.5 mg tablet 12.5 mg PO .prn PRN (Reason: dizziness) fluticasone propionate [Flonase Allergy Relief] 50 mcg/actuation spray,suspension 1 spray intranasal DAILY Rx Instructions: administer into each nostril clobetasol 0.05 % cream 1 applic topical .prn Saccharomyces boulardii [Daily Probiotic (S. boulardii)] 250 mg capsule 250 mg PO DAILY multivitamin Tablet 1 tab PO DAILY calcium carbonate [Calcium 600] 600 mg calcium (1,500 mg) tablet 600 mg PO DAILY ginkgo biloba 40 mg tablet 40 mg PO DAILY Rx Instructions: give with meal/snack turmeric 400 mg capsule 400 mg PO DAILY vitamin B complex [B Complex-Vitamin B12] Tablet 1 tab PO DAILY Referrals / Follow Up: Audelia Waldron MD [Primary Care Provider] - Disposition Disposition (needs filled in before D/C Order can be placed): Home, Self Care
[2023-09-15] MEDS: Cefotetan 2 GM in 0.9% NS 100 ML IV (07:55)
[2023-09-15] MEDS: Dibucaine 30 GM Tube 1 APPLIC (08:46)
[2023-09-15] MEDS: BUPIVACAINE LIPOSOME/PF 20 ML VIAL OPERA.SITE (08:46)
[2023-09-15] MEDS: Bupivacaine Mpf 0.5% 30 ML VIAL (08:46)
--- NOTE | 2023-09-15 08:53 | OP.PCM_ITS ---
Report of Operation Date of Procedure: 09/15/23 Pre-Operative Diagnosis: Prolapsing bleeding internal hemorrhoidal tissue Post-Operative Diagnosis: Same Surgery/Procedure Performed:: Multiple column surgical hemorrhoidectomy Description of Surgical Findings:: Timeout informed consent was obtained. 78-year-old female was taken to the op room she underwent a colonoscopy as described in probation. Mid transverse colon polyp was removed with cold forceps. She then was placed from the left lobe with good decision to a prone position with careful padding at the shoulders and pelvis. Perianal area was prepped with Betadine. Cefotetan 2 g were given intravenously. She was under general anesthesia. Inspection revealed that there was constantly prolapsing internal hemorrhoidal tissue with evidence of superficial ulceration on the prolapsed tissue left laterally. A speculum was inserted apical suture of 0 Vicryl placed apical suture of 2-0 chromic placed harmonic scalpel was then used to excise the external component and a extensive prolapsing internal component. Partial full-thickness removal was achieved. Sphincter mechanism identified and carefully protected. The mucosa and muscular tissue was approximated with a running locking 0 Vicryl. The external portion was approximated of the mucosa with a running 2-0 chromic. Excellent removal of proximal extension and fixation of the tissue was achieved in hopes of preventing future recurrent prolapse. There was additional hemorrhoidal tissue mostly internally on the right lateral aspect. Again an apical suture of 0 Vicryl placed apical suture of 2-0 chromic placed and then a internal and external surgical hemorrhoidectomy performed with harmonic scalpel. The mucosa again approximated this time with a running 2-0 chromic. Gelfoam was inserted with Dibucaine ointment. The belle-incisional area anesthetized with a mixture of 0.5% Marcaine and 20 cc of Exparel. Sterile gauze cover dressings applied she tolerated procedure well she was taken to the recovery r oom in satisfied condition no apparent complication. Specimens include prolapsing internal and external hemorrhoidal tissue. Drains none. Blood loss minimal. Anish Knutson M.D., F.A.C.S. Surgeon: Anish Knutson Type of Anesthesia: General and Local Anesthesiologist: Marivel Thomas
--- NOTE | 2023-09-15 09:01 | OP.COLON_ITS ---
Patient Name: Carmela Marhc Procedure Date: 09/15/2023 7:24 AM Date of : 1945 Age: 78 Procedure: Colonoscopy Indications: Rectal bleeding Providers: Anish Knutson MD Referring MD: Audelia Waldron Medicines: General Anesthesia Patient Profile: Last Colonoscopy: 2018. Complications: No immediate complications. Procedure: Pre-Anesthesia Assessment: - Prior to the procedure, a History and Physical was performed, and patient medications and allergies were reviewed. The patient's tolerance of previous anesthesia was also reviewed. The risks and benefits of the procedure and the sedation options and risks were discussed with the patient. All questions were answered, and informed consent was obtained. Prior Anticoagulants: The patient has taken no anticoagulant or antiplatelet agents. ASA Grade Assessment: II - A patient with mild systemic disease. After reviewing the risks and benefits, the patient was deemed in satisfactory condition to undergo the procedure. After I obtained informed consent, the scope was passed under direct vision. Throughout the procedure, the patient's blood pressure, pulse, and oxygen saturations were monitored continuously. The Colonoscope was introduced through the anus and advanced to the cecum, identified by appendiceal orifice and ileocecal valve. The colonoscopy was performed without difficulty. The patient tolerated the procedure well. The quality of the bowel preparation was fair. The ileocecal valve and the appendiceal orifice were photographed. Scope In: 7:35:57 AM Scope Withdrawal Time 0 hours 7 minutes 31 seconds Scope Out: 7:55:14 AM Total Procedure Duration Time 0 hours 19 minutes 17 seconds Findings: The digital rectal exam findings include decreased sphincter tone, non-thrombosed external hemorrhoids, non-thrombosed internal hemorrhoids and internal hemorrhoids that do not return to the anal canal, thus continuously prolapsed (Grade IV). A 3 mm polyp was found in the mid transverse colon. The polyp was sessile. The polyp was removed with a cold biopsy forceps. Resection and retrieval were complete. The colon (entire examined portion) was moderately tortuous. Advancing the scope required using manual pressure. Impression: - Preparation of the colon was fair. - Decreased sphincter tone, non-thrombosed external hemorrhoids, non-thrombosed internal hemorrhoids and internal hemorrhoids that do not return to the anal canal, thus continuously prolapsed (Grade IV) found on digital rectal exam. - One 3 mm polyp in the mid transverse colon, removed with a cold biopsy forceps. Resected and retrieved. - Tortuous colon. Recommendation: - Discharge patient to home. - Resume previous diet. - Continue present medications. - Repeat colonoscopy in 5 years for surveillance based on pathology results. - Return to my office in 3 weeks. Procedure Code(s): --- Professional --- 47664, Colonoscopy, flexible; with biopsy, single or multiple Diagnosis Code(s): --- Professional --- K64.3, Fourth degree hemorrhoids K64.4, Residual hemorrhoidal skin tags K62.89, Other specified diseases of anus and rectum D12.3, Benign neoplasm of transverse colon (hepatic flexure or splenic flexure) K62.5, Hemorrhage of anus and rectum Q43.8, Other specified congenital malformations of intestine CPT copyright 2021 [employer]. All rights reserved. The codes documented in this report are preliminary and upon grinding machine operator automatic review may be revised to meet current compliance requirements. Anish Knutson MD 09/15/2023 9:01:32 AM This report has been signed electronically. Number of Addenda: 0 Note Initiated On: 09/15/2023 7:24 AM
--- NOTE | 2023-09-15 09:02 | OP.CCLET_ITS ---
09/15/2023 Audelia Waldron [address] [place] [address] Re : Colonoscopy procedure for Carmela Deboard Dear Dr. Waldron This procedure was performed on September. My impressions and recommendations are as follows: Impressions : - Preparation of the colon was fair. - Decreased sphincter tone, non-thrombosed external hemorrhoids, non-thrombosed internal hemorrhoids and internal hemorrhoids that do not return to the anal canal, thus continuously prolapsed (Grade IV) found on digital rectal exam. - One 3 mm polyp in the mid transverse colon, removed with a cold biopsy forceps. Resected and retrieved. - Tortuous colon. Recommendations : - Discharge patient to home. - Resume previous diet. - Continue present medications. - Repeat colonoscopy in 5 years for surveillance based on pathology results. - Return to my office in 3 weeks. My findings are described in the full procedure note, which is enclosed. If I can be of further assistance, please feel free to contact me at Doctor phone number(s): Work: . Sincerely, Anish Knutson MD 09/15/2023 9:01:32 AM This report has been signed electronically.
[2023-09-15] MEDS: Acetaminophen 325 MG Tablet 650 MG PO (10:45)
== END 2023-09-15 13:40 | disposition home or self-care (01) ==
LOC: EN 05:38 → AC 05:39
PROVIDERS: PCP Internal Medicine; Referring Provider Internal Medicine; Visit Provider Surgery
PROC: (CPT 46260; principal; 2023-09-15 07:15)
PROC: 0DJD8ZZ Inspection of Lower Intestinal Tract, Via Natural or Artificial Opening Endoscopic (ICD-10-PCS; CPT 45378; principal; 2023-09-15 07:25)
DX: K64.3 Fourth degree hemorrhoids (principal); K64.8 Other hemorrhoids; K64.4 Residual hemorrhoidal skin tags; D64.9 Anemia, unspecified; K63.5 Polyp of colon; K44.9 Diaphragmatic hernia without obstruction or gangrene; J45.909 Unspecified asthma, uncomplicated; Z90.49 Acquired absence of other specified parts of digestive tract; Q43.8 Other specified congenital malformations of intestine
CPT/HCPCS: 46260; 00811; 45380; 88304; 88305; J7120; J2405